=== PATIENT | female | born 1970 | race Caucasian/White ===

== ENCOUNTER 2017-10-02 12:53 | Outpatient (CLI) | payer OTHER ==
[~2017-10-02 12:53] MED LIST: ALBU6.7H INH; BENZ-49 PO; FAMO-128 PO
== END 2017-10-02 23:59 | disposition home or self-care (01) ==
LOC: RAD 12:53
PROVIDERS: ATTEND Nurse Practitioner Family
DX: M54.2 Cervicalgia (principal); Z98.1 Arthrodesis status
CPT/HCPCS: 72141

== ENCOUNTER 2017-10-18 21:43 | Emergency (ER) | payer OTHER ==
[~2017-10-18] VITALS: Ht 170.2 cm; Wt 93.6 kg
[2017-10-18 22:03] VITALS: BP 168/106
[2017-10-18] MEDS ORDERED: SUMAtriptan succ. 6 MG/0.5ml vial SQ ONE (22:15)
[2017-10-18] MEDS ORDERED: ketorolac trometh. 30mg/ml inj. IV ONE (22:15)
[2017-10-18] MEDS ORDERED: morphine 4 MG/ML inj SYRINge IV ONE (22:15)
[2017-10-18] MEDS ORDERED: proCHLORperazine 10 MG/2 ml inj IV ONE (22:15)
[2017-10-18] MEDS ORDERED: normal saline 1000ML IV soln IVB ONE (22:15)
[2017-10-18] MEDS ORDERED: dexamethasone sod phosphate 10mg/ml inj IV STA (22:49)
[2017-10-18] MEDS ORDERED: SUMA100T PO (23:21)
== END 2017-10-18 23:33 | disposition home or self-care (01) ==
LOC: ER 21:44 → EEVIPCON 21:44 → ER 23:33
DX: G43.909 Migraine, unspecified, not intractable, without status migrainosus (principal); M54.2 Cervicalgia; I10 Essential (primary) hypertension; G89.29 Other chronic pain; J45.909 Unspecified asthma, uncomplicated; Z90.710 Acquired absence of both cervix and uterus; Z98.890 Other specified postprocedural states; Z87.442 Personal history of urinary calculi
CPT/HCPCS: 96361; 96372; 96374; 96375; 99284; J0780; J1100; J1885; J2270; J3030; J7030

== ENCOUNTER 2017-11-30 16:49 | Emergency (ER) | payer OTHER ==
[~2017-11-30] VITALS: Ht 170.2 cm; Wt 97.0 kg
[2017-11-30] MEDS ORDERED: AMIT-189 (17:19)
[2017-11-30] MEDS ORDERED: CLON2TAB11 (17:19)
[2017-11-30] MEDS ORDERED: ketorolac tromethamine 15mg/ml inj. IM ONE (18:20)
[2017-11-30] MEDS ORDERED: CYCL-1 PO (18:30)
[2017-11-30 18:38] VITALS: BP 121/68
== END 2017-11-30 18:40 | disposition home or self-care (01) ==
LOC: ER 16:50
DX: S39.012A Strain of muscle, fascia and tendon of lower back, initial encounter (principal); I10 Essential (primary) hypertension; J45.909 Unspecified asthma, uncomplicated; G89.29 Other chronic pain; Z87.442 Personal history of urinary calculi; Z90.710 Acquired absence of both cervix and uterus; Z98.890 Other specified postprocedural states; Z79.899 Other long term (current) drug therapy; X58.XXXA Exposure to other specified factors, initial encounter; Y93.89 Activity, other specified; Y92.89 Other specified places as the place of occurrence of the external cause; Y99.8 Other external cause status
CPT/HCPCS: 96372; 99283; J1885

== ENCOUNTER 2018-01-22 12:59 | Outpatient (CLI) | payer OTHER ==
[~2018-01-22 12:59] MED LIST changes: +AMIT-189; +CLON2TAB11; +CYCL-1 PO
[2018-01-22 13:26] LABS: BASOPHILS % (AUTO) 0.5 % (0-1); EOSINOPHILS # (AUTO) 0.2 X10'3 (0-0.9); EOSINOPHILS % (AUTO) 2.5 % (0-6); HEMATOCRIT 43.8 % (35.0-45.0); HEMOGLOBIN 15.3 g/dl (12.0-16.0); LYMPHOCYTES # (AUTO) 2.4 X10'3 (1.1-4.8); LYMPHOCYTES % (AUTO) 34.4 % (21-51); MEAN CORPUSCULAR HEMOGLOBIN 31.5 PG (27.0-31.0); MEAN CORPUSCULAR HGB CONC 34.9 % (33.0-36.5); MEAN CORPUSCULAR VOLUME 90.4 FL (78-98); MEAN PLATELET VOLUME 7.2 FL (7.4-10.4); MONOCYTES # (AUTO) 0.5 X10'3 (0-0.9); MONOCYTES % (AUTO) 7.7 % (2-12); NEUTROPHILS # (AUTO) 3.8 X10'3 (1.8-7.7); NEUTROPHILS % (AUTO) 54.9 % (42-75); PLATELET COUNT 294 X10'3 (140-440); RED BLOOD COUNT 4.84 X10'6 (4.20-5.60); RED CELL DISTRIBUTION WIDTH 13.8 % (11.5-14.5)
[2018-01-22 13:30] LABS: CLARITY,URINE SLIGHTLY CLOUDY (Clear); COLOR,URINE YELLOW (Yellow); GLUCOSE, URINE NEGATIVE (Neg); KETONES,URINE NEGATIVE (Neg); LEUKOCYTE ESTERASE ,URINE NEGATIVE (Neg); NITRITES, URINE NEGATIVE (Neg); OCCULT BLOOD,URINE NEGATIVE (Neg); PROTEIN,URINE 100 mg/dl (Neg); UROBILINOGEN,URINE 0.2 E.U/dL (0.2-1.0)
[2018-01-22 13:43] LABS: UA COLLECTION TYPE CLN CATCH MIDSTREAM
[2018-01-22 13:44] LABS: WBC,URINE 0-4 /HPF (0-4)
[2018-01-22 13:45] LABS: BACTERIA,URINE 2+ /HPF (Neg); MUCUS STRANDS MANY /LPF (Neg); RBC,URINE NONE SEEN /HPF (0-2); SQUAMOUS EPITHELIAL CELL,UR MANY /LPF (FEW)
[2018-01-22 13:48] LABS: ALANINE AMINOTRANSFERASE 112 U/L (12-78); ALBUMIN 4.1 G/DL (3.4-5.0); ALBUMIN/GLOBULIN RATIO 1.1 (1.1-1.5); ALKALINE PHOSPHATASE 101 IU/L (46-116); ANION GAP 7 (8-16); ASPARTATE AMINO TRANSFERASE 41 U/L (10-37); BILIRUBIN,TOTAL 0.3 MG/DL (0.1-1.0); BLOOD UREA NITROGEN 11 MG/DL (7-18); BUN/CREATININE RATIO 11.1 (6.6-38.0); CALCIUM 9.1 MG/DL (8.5-10.1); CHLORIDE 106 MMOL/L (99-107); CHOLESTEROL 223 MG/DL (0-200); CREATININE 0.99 MG/DL (0.40-0.90); GLUCOSE 128 MG/DL (70-104); HDL CHOLESTEROL 45 MG/DL (35-60); LDL CHOLESTEROL 154 MG/DL (50-100); SODIUM 139 MMOL/L (135-145); TOTAL CARBON DIOXIDE 26.3 MMOL/L (24-32); TOTAL PROTEIN 7.9 G/DL (6.4-8.2); TRIGLYCERIDES 152 MG/DL (20-135); eGFR 60 ML/MIN
== END 2018-01-22 23:59 | disposition home or self-care (01) ==
LOC: LAB 12:59
PROVIDERS: ATTEND Family Medicine
DX: Z00.01 Encounter for general adult medical examination with abnormal findings (principal); F17.200 Nicotine dependence, unspecified, uncomplicated; J45.909 Unspecified asthma, uncomplicated
CPT/HCPCS: 36415; 80053; 80061; 81001; 83001; 84439; 84443; 85025

== ENCOUNTER 2018-01-31 17:37 | Emergency (ER) | payer OTHER ==
[~2018-01-31] VITALS: Ht 170.2 cm; Wt 95.0 kg
[2018-01-31 18:10] LABS: URINE HCG NEGATIVE (NEG)
[2018-01-31 18:22] LABS: CLARITY,URINE SLIGHTLY CLOUDY (Clear); COLOR,URINE YELLOW (Yellow); GLUCOSE, URINE NEGATIVE (Neg); KETONES,URINE NEGATIVE (Neg); LEUKOCYTE ESTERASE ,URINE NEGATIVE (Neg); NITRITES, URINE NEGATIVE (Neg); OCCULT BLOOD,URINE NEGATIVE (Neg); PROTEIN,URINE NEGATIVE (Neg); UROBILINOGEN,URINE 0.2 E.U/dL (0.2-1.0)
[2018-01-31 18:24] LABS: UA COLLECTION TYPE CLN CATCH MIDSTREAM
[2018-01-31 18:32] LABS: BACTERIA,URINE 2+ /HPF (Neg); MUCUS STRANDS MANY /LPF (Neg); RBC,URINE NONE SEEN /HPF (0-2); SQUAMOUS EPITHELIAL CELL,UR MANY /LPF (FEW); WBC,URINE 0-4 /HPF (0-4)
[2018-01-31] MEDS ORDERED: ondansetron 4mg rapidly disintigrating tab PO ONE (18:50)
[2018-01-31] MEDS ORDERED: ketorolac tromethamine 15mg/ml inj. IM ONE (18:50)
[2018-01-31 19:22] LABS: BASOPHILS % (AUTO) 0.5 % (0-1); EOSINOPHILS # (AUTO) 0.2 X10'3 (0-0.9); EOSINOPHILS % (AUTO) 1.9 % (0-6); HEMATOCRIT 41.1 % (35.0-45.0); HEMOGLOBIN 14.1 g/dl (12.0-16.0); LYMPHOCYTES % (AUTO) 37.6 % (21-51); MEAN CORPUSCULAR HEMOGLOBIN 31.1 PG (27.0-31.0); MEAN CORPUSCULAR HGB CONC 34.2 % (33.0-36.5); MEAN CORPUSCULAR VOLUME 90.7 FL (78-98); MEAN PLATELET VOLUME 7.3 FL (7.4-10.4); MONOCYTES # (AUTO) 0.5 X10'3 (0-0.9); NEUTROPHILS # (AUTO) 4.3 X10'3 (1.8-7.7); PLATELET COUNT 330 X10'3 (140-440); RED BLOOD COUNT 4.54 X10'6 (4.20-5.60); WHITE BLOOD COUNT 7.9 X10'3 (4.5-11.0)
[2018-01-31 19:38] LABS: ALANINE AMINOTRANSFERASE 92 U/L (12-78); ALBUMIN 4.1 G/DL (3.4-5.0); ALBUMIN/GLOBULIN RATIO 1.1 (1.1-1.5); ALKALINE PHOSPHATASE 93 IU/L (46-116); ANION GAP 7 (8-16); ASPARTATE AMINO TRANSFERASE 37 U/L (10-37); BILIRUBIN,TOTAL 0.2 MG/DL (0.1-1.0); BLOOD UREA NITROGEN 12 MG/DL (7-18); BUN/CREATININE RATIO 12.9 (6.6-38.0); CALCIUM 9.6 MG/DL (8.5-10.1); CHLORIDE 107 MMOL/L (99-107); CREATININE 0.93 MG/DL (0.40-0.90); GLUCOSE 101 MG/DL (70-104); POTASSIUM 3.7 MMOL/L (3.5-5.1); SODIUM 144 MMOL/L (135-145); TOTAL CARBON DIOXIDE 30.3 MMOL/L (24-32); TOTAL PROTEIN 7.7 G/DL (6.4-8.2); eGFR 65 ML/MIN
[2018-01-31] MEDS ORDERED: DICY10CA88 PO (20:19)
[2018-01-31] MEDS ORDERED: HYDR-3965 PO (20:19)
[2018-01-31] MEDS ORDERED: ONDA4TAB12 PO (20:19)
[2018-01-31] MEDS ORDERED: IBUP-1986 PO (20:19)
[2018-01-31] MEDS ORDERED: morphine 4 MG/ML inj SYRINge IM ONE (20:40)
[2018-01-31 20:55] VITALS: BP 145/89
== END 2018-01-31 20:57 | disposition home or self-care (01) ==
LOC: ER 17:38
DX: R10.31 Right lower quadrant pain (principal); I10 Essential (primary) hypertension; J45.909 Unspecified asthma, uncomplicated; G89.29 Other chronic pain; Z90.49 Acquired absence of other specified parts of digestive tract; Z90.710 Acquired absence of both cervix and uterus; Z98.890 Other specified postprocedural states; Z79.1 Long term (current) use of non-steroidal anti-inflammatories (NSAID); Z79.899 Other long term (current) drug therapy
CPT/HCPCS: 36415; 80053; 81001; 81025; 85025; 96372; 99284; J1885; J2270

== ENCOUNTER 2018-02-17 09:40 | Outpatient (CLI) | payer OTHER ==
[~2018-02-17 09:40] MED LIST changes: +CIPR250T4 PO; +DICY10CA88 PO; +FLO0.4C PO; +HYDR-3965 PO; +IBUP-1986 PO; +ONDA4TAB12 PO
[2018-02-17] MEDS ORDERED: gadopentetate dimeglumine 7.5 MMOL/15 ML syringe ONE (18:04)
== END 2018-02-17 23:59 | disposition home or self-care (01) ==
LOC: RAD 09:40
PROVIDERS: ATTEND Family Medicine
DX: M51.26 Other intervertebral disc displacement, lumbar region (principal); M16.0 Bilateral primary osteoarthritis of hip; M47.816 Spondylosis without myelopathy or radiculopathy, lumbar region; F17.200 Nicotine dependence, unspecified, uncomplicated; J45.909 Unspecified asthma, uncomplicated; Z79.899 Other long term (current) drug therapy; Z90.710 Acquired absence of both cervix and uterus
CPT/HCPCS: 72158; 73521; A9579

== ENCOUNTER 2018-03-25 12:56 | Outpatient (CLI) | payer OTHER ==
[~2018-03-25 12:56] MED LIST changes: -CIPR250T4 PO; -DICY10CA88 PO; -FLO0.4C PO; -HYDR-3965 PO
== END 2018-03-25 23:59 | disposition home or self-care (01) ==
LOC: RAD 12:56
PROVIDERS: ATTEND Orthopaedic Surgery Orthopaedic Surgery of the Spine
DX: M51.36 Other intervertebral disc degeneration, lumbar region (principal); M43.27 Fusion of spine, lumbosacral region; J45.909 Unspecified asthma, uncomplicated; F17.200 Nicotine dependence, unspecified, uncomplicated; Z90.710 Acquired absence of both cervix and uterus
CPT/HCPCS: 72100

== ENCOUNTER 2018-03-25 13:05 | Outpatient (CLI) | payer OTHER | END 2018-03-25 23:59 | disposition home or self-care (01) | LOC: RAD 13:05 | PROVIDERS: ATTEND Family Medicine | DX: Z00.01 Encounter for general adult medical examination with abnormal findings (principal); K76.0 Fatty (change of) liver, not elsewhere classified; J45.909 Unspecified asthma, uncomplicated; F17.200 Nicotine dependence, unspecified, uncomplicated; Z90.710 Acquired absence of both cervix and uterus | CPT/HCPCS: 76700 ==

== ENCOUNTER 2018-05-27 11:48 | Observation (INO) | payer OTHER ==
[2018-05-27] VITALS (15 sets, daily range): BP systolic 112–158; BP diastolic 62–100
[~2018-05-27] VITALS: Ht 170.2 cm; Wt 97.8 kg
[~2018-05-27 11:48] MED LIST changes: -AMIT-189; -BENZ-49 PO; -CLON2TAB11; +CLON2TAB11 PO; -CYCL-1 PO; +EST1T PO; -FAMO-128 PO; +META800T87 PO; -ONDA4TAB12 PO; +TRAM50TA2 PO; +VANCOMYCIN INJ 1000 MG in NORMAL SALINE 250ml IV.SOLN IV ONE; +ZOLP10TA5 PO; +cefazolin/dext.iso 2gm/100 ML IV ONE; +famotidine 20mg tablet PO ONE; +ringers solution, lacted 1,000 ML IV SCH
[2018-05-27] MEDS ORDERED: LIDOcaine 1% (10mg/ml) 2ml vial ONE (12:50)
[2018-05-27 13:31] LABS: BASOPHILS % (AUTO) 0.8 % (0-1); EOSINOPHILS # (AUTO) 0.1 X10'3 (0-0.9); EOSINOPHILS % (AUTO) 2.4 % (0-6); LYMPHOCYTES # (AUTO) 2.2 X10'3 (1.1-4.8); LYMPHOCYTES % (AUTO) 34.7 % (21-51); MEAN CORPUSCULAR HEMOGLOBIN 30.7 PG (27.0-31.0); MEAN CORPUSCULAR HGB CONC 33.8 % (33.0-36.5); MEAN CORPUSCULAR VOLUME 90.8 FL (78-98); MEAN PLATELET VOLUME 7.3 FL (7.4-10.4); MONOCYTES # (AUTO) 0.5 X10'3 (0-0.9); MONOCYTES % (AUTO) 8.1 % (2-12); NEUTROPHILS # (AUTO) 3.4 X10'3 (1.8-7.7); PRE OP HEMATOCRIT 38.6 % (35.0-45.0); PRE OP HEMOGLOBIN 13.1 g/dL (12.0-16.0); PRE OP PLATELET COUNT 306 X10'3 (140-440); RED BLOOD COUNT 4.26 X10'6 (4.20-5.60)
[2018-05-27 13:49] LABS: PRE OP INR 0.9 INR; PRE OP PROTIME 9.6 SECONDS (9.0-12.0)
[2018-05-27 13:50] LABS: ALBUMIN 3.7 G/DL (3.4-5.0); ALBUMIN/GLOBULIN RATIO 1.1 (1.1-1.5); ALKALINE PHOSPHATASE 79 IU/L (46-116); BLOOD UREA NITROGEN 11 MG/DL (7-18); BUN/CREATININE RATIO 13.6 (6.6-38.0); CALCIUM 8.7 MG/DL (8.5-10.1); CHLORIDE 103 MMOL/L (99-107); CREATININE 0.81 MG/DL (0.40-0.90); PRE OP ALT 46 U/L (30-65); PRE OP ANION GAP 9 (8-16); PRE OP AST 30 U/L (10-37); PRE OP BILIRUB, TOTAL 0.3 MG/DL (0.0-1.0); PRE OP GLUCOSE 109 MG/DL (70-104); PRE OP POTASSIUM 3.7 MMOL/L (3.4-5.1); PRE OP SODIUM 139 MMOL/L (135-145); TOTAL CARBON DIOXIDE 26.6 MMOL/L (24-32); TOTAL PROTEIN 7.2 G/DL (6.4-8.2); eGFR 76 ML/MIN
[2018-05-27] MEDS ORDERED: gelatin sponge, absorbable (Gelfoam 100) sponge TP ONE (13:50)
[2018-05-27] MEDS ORDERED: Thrombin (Bovine) 5,000 unit vial TP ONE (13:50)
[2018-05-27] MEDS ORDERED: methylPREDNISolone sod succ 125mg/2ml vial ONE (13:50)
[2018-05-27] MEDS ORDERED: rocuronium 10mg/ml inj IV ONE ×2 (14:07→17:25)
[2018-05-27] MEDS ORDERED: LIDOcaine 2% (20mg/ml) 5ml vial ONE (14:07)
[2018-05-27] MEDS ORDERED: propofol inj 20 ML IV ONE (14:07)
[2018-05-27] MEDS ORDERED: ondansetron/PF 4mg/2ml inj ONE (14:07)
[2018-05-27] MEDS: midazolam 2 mg/2 ml injection IV PRN ×2 (14:13→15:09)
[2018-05-27] MEDS ORDERED: labetalol 20mg/4ml (5mg/ml) syringe IV PRN (14:50)
[2018-05-27] MEDS ORDERED: morphine 4 MG/ML inj SYRINge IV PRN (14:50)
[2018-05-27] MEDS ORDERED: ringers solution, lacted 1,000 ML IV SCH (14:50)
[2018-05-27] MEDS ORDERED: ondansetron/PF 4mg/2ml inj IV PRN ×2 (14:50→19:20)
[2018-05-27] MEDS ORDERED: fentaNYL/PF 50MCG/1 ML 2ML syringe IV PRN ×2 (14:50)
[2018-05-27] MEDS ORDERED: hydrALAZINE 20mg/ml inj. IV PRN (14:50)
[2018-05-27 14:57] LABS: CLARITY,URINE CLEAR (Clear); COLOR,URINE STRAW (Yellow); GLUCOSE, URINE NEGATIVE (Neg); KETONES,URINE NEGATIVE (Neg); LEUKOCYTE ESTERASE ,URINE NEGATIVE (Neg); NITRITES, URINE NEGATIVE (Neg); OCCULT BLOOD,URINE LARGE (Neg); PH,URINE 5.5 (4.8-8.0); PROTEIN,URINE NEGATIVE (Neg); UROBILINOGEN,URINE 0.2 E.U/dL (0.2-1.0)
[2018-05-27 15:00] LABS: UA COLLECTION TYPE CLN CATCH MIDSTREAM
[2018-05-27 15:04] LABS: SQUAMOUS EPITHELIAL CELL,UR FEW /LPF (FEW); WBC,URINE 0-4 /HPF (0-4)
[2018-05-27 15:05] LABS: BACTERIA,URINE FEW /HPF (Neg)
[2018-05-27] MEDS ORDERED: sevoflurane 250ml liquid IH ONE (15:08)
[2018-05-27] MEDS ORDERED: labetalol 20mg/4ml (5mg/ml) syringe IV ONE (15:08)
[2018-05-27] MEDS ORDERED: dexamethasone sod phosphate 10mg/ml inj ONE (15:08)
[2018-05-27] MEDS ORDERED: fentaNYL /PF 50mcg/ml 5ml ampule ONE ×2 (15:09→18:17)
[2018-05-27] MEDS ORDERED: MIDAZolam 5mg/5ml vial ONE (15:09)
[2018-05-27] MEDS ORDERED: glycopyrrolate 0.2mg/ml inj ONE (16:11)
[2018-05-27] MEDS ORDERED: neostigmine methylsulfate 1 MG/ML 10ml vial ONE (16:11)
[2018-05-27] MEDS ORDERED: fentaNYL/PF 50MCG/1 ML 2ML syringe ONE (17:09)
[2018-05-27] MEDS ORDERED: BUPIVAcaine/PF 2.5mg/ml (0.25%) 10ml vial ONE (18:45)
[2018-05-27] MEDS ORDERED: clonazePAM 1mg tablet PO PRN (19:15)
[2018-05-27] MEDS ORDERED: acetaminophen 325mg tablet PO PRN (19:20)
[2018-05-27] MEDS ORDERED: HYDROcodone/acetaminophen 10/325mg tab PO PRN (19:20)
[2018-05-27] MEDS ORDERED: metoclopramide 5 mg/ml inj IV PRN (19:20)
[2018-05-27] MEDS ORDERED: temazepam 15mg capsule PO PRN (19:20)
[2018-05-27] MEDS ORDERED: simethicone 125mg capsule PO PRN (19:20)
[2018-05-27] MEDS ORDERED: diphenhydrAMINE 50 mg/ml inj IV PRN (19:20)
[2018-05-27] MEDS ORDERED: naloxone 0.4 mg/ml inj IV PRN (19:20)
[2018-05-27] MEDS ORDERED: bisacodyl 10mg suppository rectal RC PRN (19:20)
[2018-05-27] MEDS ORDERED: albuterol 2.5 MG/3 ML nebule NEB PRN (19:20)
[2018-05-27] MEDS ORDERED: mag hydrox/Alum hydrox/simeth 30ml oral suspension PO PRN (19:20)
[2018-05-27] MEDS ORDERED: magnesium hydroxide 30ml (MOM) UD suspension PO PRN (19:20)
[2018-05-27] MEDS ORDERED: CADD PCA waste documentation MC PRN (19:20)
[2018-05-27] MEDS: morphine 4 MG/ML inj SYRINge IV PRN ×2 (19:34→19:56)
[2018-05-27] MEDS: HYDROmorphone/NS 1 mg/ml CADD 50 ML IV SCH ×3 (20:06→23:00)
[2018-05-27] MEDS: normal saline 1000ml 1,000 ML IV SCH (20:06)
[2018-05-27] MEDS: docusate sod 100mg capsule PO SCH (20:48)
[2018-05-27] MEDS: vancomycin/NS 1 GM ADD-VANTAGE 250 ML IV SCH (20:48)
[2018-05-27] MEDS ORDERED: HYDROmorphone/NS 1 mg/ml CADD 50 ML IV SCH (21:00)
[2018-05-27] MEDS: zolpidem 5mg tablet PO PRN (21:46)
[2018-05-27] MEDS: ibuprofen tablet 400 MG TABLET PO SCH (23:25)
[2018-05-27] MEDS: ceFAZolin 1GM/D5W- ADD-VANTAGE 50 ML IV SCH (23:27)
[2018-05-28 00:15] VITALS: BP 127/77
[2018-05-28] MEDS: HYDROmorphone/NS 1 mg/ml CADD 50 ML IV SCH ×6 (00:46→11:00)
[2018-05-28 07:25] VITALS: BP 98/68
[2018-05-28] MEDS: ibuprofen tablet 400 MG TABLET PO SCH ×3 (08:21→23:54)
[2018-05-28] MEDS: ceFAZolin 1GM/D5W- ADD-VANTAGE 50 ML IV SCH (08:21)
[2018-05-28] MEDS: estradiol 1mg tablet PO SCH (08:22)
[2018-05-28] MEDS: docusate sod 100mg capsule PO SCH ×2 (08:22→19:24)
[2018-05-28] MEDS: normal saline 1000ml 1,000 ML IV SCH ×2 (09:36→19:34)
[2018-05-28] MEDS: gabapentin 300mg capsule PO SCH ×3 (09:36→23:54)
[2018-05-28] MEDS: vancomycin/NS 1 GM ADD-VANTAGE 250 ML IV SCH (09:36)
[2018-05-28] MEDS ORDERED: cyclobenzaprine 10mg tablet PO PRN (11:40)
[2018-05-28] MEDS: cyclobenzaprine 10mg tablet PO PRN ×2 (11:48→23:56)
[2018-05-28] MEDS: HYDROcodone/acetaminophen 10/325mg tab PO PRN ×3 (12:37→21:50)
[2018-05-28 12:40] VITALS: BP 129/65
[2018-05-28 18:00] VITALS: BP 154/68
[2018-05-28] MEDS: HYDROmorphone 1 mg/ml syringe IV PRN (19:24)
[2018-05-28] MEDS: zolpidem 5mg tablet PO PRN (21:49)
[2018-05-28 22:00] VITALS: BP 135/77
[2018-05-29] MEDS: normal saline 1000ml 1,000 ML IV SCH (01:06)
[2018-05-29] MEDS: HYDROmorphone 1 mg/ml syringe IV PRN ×3 (01:07→12:24)
[2018-05-29] MEDS: HYDROcodone/acetaminophen 10/325mg tab PO PRN ×3 (02:35→10:36)
[2018-05-29 06:00] VITALS: BP 132/72
[2018-05-29] MEDS: estradiol 1mg tablet PO SCH (08:44)
[2018-05-29] MEDS: gabapentin 300mg capsule PO SCH (08:44)
[2018-05-29] MEDS: ibuprofen tablet 400 MG TABLET PO SCH (08:44)
[2018-05-29] MEDS: docusate sod 100mg capsule PO SCH (08:44)
[2018-05-29] MEDS ORDERED: CYCL-1 PO (09:30)
[2018-05-29] MEDS ORDERED: GABA300C PO (09:30)
[2018-05-29] MEDS ORDERED: WALKERFR (09:34)
[2018-05-29 10:00] VITALS: BP 160/82
[2018-05-29] MEDS: cyclobenzaprine 10mg tablet PO PRN (10:05)
== END 2018-05-29 12:30 | disposition home or self-care (01) ==
LOC: PAS 11:48 → PACU 19:57 → ORTHO 4S 20:20
PROVIDERS: ADMIT Orthopaedic Surgery Orthopaedic Surgery of the Spine; ATTEND Orthopaedic Surgery Orthopaedic Surgery of the Spine
DX: M51.16 Intervertebral disc disorders with radiculopathy, lumbar region (principal); M47.28 Other spondylosis with radiculopathy, sacral and sacrococcygeal region; F17.210 Nicotine dependence, cigarettes, uncomplicated; Z90.49 Acquired absence of other specified parts of digestive tract; Z90.710 Acquired absence of both cervix and uterus
CPT/HCPCS: 36415; 71045; 72100; 76001; 80053; 81001; 85025; 85610; 85730; 86885; 86900; 86901; 94760; 96365; 96366; 96367; 96375; 96376; 97110; 97116; 97162; 97530; A4344; A6196; A6402; A7000; C1758; G0378; J0690; J1100; J1170; J2001; J2250; J2270; J2405; J2704; J2710; J2765; J2930; J3010; J3370; J3490; J7030; J7120

== ENCOUNTER 2018-07-16 11:20 | Outpatient (CLI) | payer OTHER ==
[~2018-07-16 11:20] MED LIST changes: +CYCL-1 PO; +GABA300C PO; -IBUP-1986 PO; -META800T87 PO; -VANCOMYCIN INJ 1000 MG in NORMAL SALINE 250ml IV.SOLN IV ONE; +WALKERFR; -cefazolin/dext.iso 2gm/100 ML IV ONE; -famotidine 20mg tablet PO ONE; -ringers solution, lacted 1,000 ML IV SCH
== END 2018-07-16 23:59 | disposition home or self-care (01) ==
LOC: RAD 11:20
PROVIDERS: ATTEND Orthopaedic Surgery Orthopaedic Surgery of the Spine
DX: M51.36 Other intervertebral disc degeneration, lumbar region (principal); M43.27 Fusion of spine, lumbosacral region; M51.26 Other intervertebral disc displacement, lumbar region; M53.3 Sacrococcygeal disorders, not elsewhere classified
CPT/HCPCS: 72100

== ENCOUNTER 2018-10-19 22:39 | Emergency (ER) | payer OTHER ==
[~2018-10-19] VITALS: Ht 170.2 cm; Wt 87.5 kg
[2018-10-19] MEDS ORDERED: ketorolac trometh. 30mg/ml inj. IV ONE (23:05)
[2018-10-19 23:18] LABS: BASOPHILS # (AUTO) 0.1 X10'3 (0-0.2); BASOPHILS % (AUTO) 0.6 % (0-1); EOSINOPHILS # (AUTO) 0.2 X10'3 (0-0.9); EOSINOPHILS % (AUTO) 2.3 % (0-6); HEMATOCRIT 38.6 % (35.0-45.0); HEMOGLOBIN 12.9 g/dl (12.0-16.0); LYMPHOCYTES # (AUTO) 3.4 X10'3 (1.1-4.8); LYMPHOCYTES % (AUTO) 39.3 % (21-51); MEAN CORPUSCULAR HEMOGLOBIN 29.8 PG (27.0-31.0); MEAN CORPUSCULAR HGB CONC 33.5 g/dL (33.0-36.5); MEAN CORPUSCULAR VOLUME 88.7 FL (78-98); MEAN PLATELET VOLUME 7.5 FL (7.4-10.4); MONOCYTES # (AUTO) 0.7 X10'3 (0-0.9); MONOCYTES % (AUTO) 8.3 % (2-12); NEUTROPHILS # (AUTO) 4.2 X10'3 (1.8-7.7); NEUTROPHILS % (AUTO) 49.5 % (42-75); PLATELET COUNT 316 X10'3 (140-440); RED BLOOD COUNT 4.35 X10'6 (4.20-5.60); RED CELL DISTRIBUTION WIDTH 15.3 % (11.5-14.5); WHITE BLOOD COUNT 8.6 X10'3 (4.5-11.0)
[2018-10-19 23:34] LABS: ALANINE AMINOTRANSFERASE 47 U/L (12-78); ALBUMIN 3.7 G/DL (3.4-5.0); ALBUMIN/GLOBULIN RATIO 0.9 (1.1-1.5); ALKALINE PHOSPHATASE 97 IU/L (46-116); ANION GAP 12 (8-16); ASPARTATE AMINO TRANSFERASE 19 U/L (10-37); BILIRUBIN,TOTAL 0.2 MG/DL (0.1-1.0); BLOOD UREA NITROGEN 8 MG/DL (7-18); CALCIUM 9.4 MG/DL (8.5-10.1); CHLORIDE 107 MMOL/L (99-107); GLUCOSE 111 MG/DL (70-104); POTASSIUM 3.6 MMOL/L (3.5-5.1); SODIUM 143 MMOL/L (135-145); TOTAL CARBON DIOXIDE 24.4 MMOL/L (24-32); TOTAL PROTEIN 7.6 G/DL (6.4-8.2); eGFR 77 ML/MIN
[2018-10-19 23:35] LABS: INR 0.9 INR; PARTIAL THROMBOPLASTIN TIME 28 SECONDS (22-32)
[2018-10-19] MEDS ORDERED: metoprolol tartrate 1mg/ml inj IV ONE (23:40)
[2018-10-19] MEDS ORDERED: ondansetron/PF 4mg/2ml inj IV ONE (23:50)
[2018-10-19] MEDS ORDERED: morphine 4 MG/ML inj SYRINge IV ONE (23:50)
[2018-10-20 00:17] VITALS: BP 149/95
[2018-10-20] MEDS ORDERED: diphenhydrAMINE 50 mg/ml inj IV ONE (00:20)
[2018-10-20] MEDS ORDERED: metoclopramide 5 mg/ml inj IV ONE (00:20)
== END 2018-10-20 00:48 | disposition home or self-care (01) ==
LOC: EEVIPCON 22:39 → ER 22:39
DX: R00.2 Palpitations (principal); R51 Headache; H53.149 Visual discomfort, unspecified; I10 Essential (primary) hypertension; R79.1 Abnormal coagulation profile; J45.909 Unspecified asthma, uncomplicated; G89.29 Other chronic pain; F17.200 Nicotine dependence, unspecified, uncomplicated; Z79.899 Other long term (current) drug therapy; Z87.442 Personal history of urinary calculi; Z87.440 Personal history of urinary (tract) infections; Z90.49 Acquired absence of other specified parts of digestive tract; Z90.710 Acquired absence of both cervix and uterus; Z98.890 Other specified postprocedural states
CPT/HCPCS: 36415; 71045; 80053; 84484; 85025; 85610; 85730; 93005; 96374; 96375; 99284; J1200; J1885; J2270; J2405; J2765; J3490

== ENCOUNTER 2019-01-08 12:53 | Outpatient (CLI) | payer OTHER ==
[2019-01-08 14:01] LABS: BASOPHILS # (AUTO) 0.1 X10'3 (0-0.2); BASOPHILS % (AUTO) 0.7 % (0-1); EOSINOPHILS # (AUTO) 0.2 X10'3 (0-0.9); EOSINOPHILS % (AUTO) 2.2 % (0-6); HEMATOCRIT 40.6 % (35.0-45.0); HEMOGLOBIN 13.9 g/dl (12.0-16.0); LYMPHOCYTES # (AUTO) 2.9 X10'3 (1.1-4.8); LYMPHOCYTES % (AUTO) 39.2 % (21-51); MEAN CORPUSCULAR HEMOGLOBIN 31.9 PG (27.0-31.0); MEAN CORPUSCULAR HGB CONC 34.1 g/dL (33.0-36.5); MEAN CORPUSCULAR VOLUME 93.5 FL (78-98); MEAN PLATELET VOLUME 7.6 FL (7.4-10.4); MONOCYTES # (AUTO) 0.6 X10'3 (0-0.9); NEUTROPHILS # (AUTO) 3.6 X10'3 (1.8-7.7); NEUTROPHILS % (AUTO) 49.9 % (42-75); PLATELET COUNT 305 X10'3 (140-440); RED BLOOD COUNT 4.34 X10'6 (4.20-5.60); RED CELL DISTRIBUTION WIDTH 14.1 % (11.5-14.5); WHITE BLOOD COUNT 7.3 X10'3 (4.5-11.0)
[2019-01-08 14:22] LABS: ALANINE AMINOTRANSFERASE 59 U/L (12-78); ALBUMIN 3.7 G/DL (3.4-5.0); ALBUMIN/GLOBULIN RATIO 0.9 (1.1-1.5); ALKALINE PHOSPHATASE 89 IU/L (46-116); ANION GAP 8 (8-16); ASPARTATE AMINO TRANSFERASE 21 U/L (10-37); BILIRUBIN,TOTAL 0.2 MG/DL (0.1-1.0); BLOOD UREA NITROGEN 10 MG/DL (7-18); BUN/CREATININE RATIO 14.9 (6.6-38.0); CALCIUM 8.3 MG/DL (8.5-10.1); CHLORIDE 105 MMOL/L (99-107); CREATININE 0.67 MG/DL (0.40-0.90); GLUCOSE 82 MG/DL (70-104); POTASSIUM 3.5 MMOL/L (3.5-5.1); SODIUM 140 MMOL/L (135-145); TOTAL CARBON DIOXIDE 26.7 MMOL/L (24-32); TOTAL PROTEIN 7.7 G/DL (6.4-8.2); eGFR > 90 ML/MIN
== END 2019-01-08 23:59 | disposition home or self-care (01) ==
LOC: LAB 12:53
PROVIDERS: ATTEND Dermatology
DX: Z79.899 Other long term (current) drug therapy (principal); R21 Rash and other nonspecific skin eruption
CPT/HCPCS: 36415; 80053; 85025

== ENCOUNTER 2019-01-17 19:30 | Emergency (ER) | payer OTHER ==
[~2019-01-17] VITALS: Ht 170.2 cm; Wt 88.6 kg
[2019-01-17 20:05] LABS: BASOPHILS # (AUTO) 0.1 X10'3 (0-0.2); BASOPHILS % (AUTO) 0.7 % (0-1); EOSINOPHILS # (AUTO) 0.2 X10'3 (0-0.9); EOSINOPHILS % (AUTO) 1.4 % (0-6); HEMATOCRIT 43.3 % (35.0-45.0); HEMOGLOBIN 14.6 g/dl (12.0-16.0); LYMPHOCYTES # (AUTO) 4.4 X10'3 (1.1-4.8); LYMPHOCYTES % (AUTO) 38.1 % (21-51); MEAN CORPUSCULAR HEMOGLOBIN 31.6 PG (27.0-31.0); MEAN CORPUSCULAR HGB CONC 33.8 g/dL (33.0-36.5); MEAN CORPUSCULAR VOLUME 93.4 FL (78-98); MEAN PLATELET VOLUME 7.7 FL (7.4-10.4); MONOCYTES # (AUTO) 0.9 X10'3 (0-0.9); MONOCYTES % (AUTO) 7.6 % (2-12); NEUTROPHILS % (AUTO) 52.2 % (42-75); PLATELET COUNT 309 X10'3 (140-440); RED BLOOD COUNT 4.63 X10'6 (4.20-5.60); WHITE BLOOD COUNT 11.4 X10'3 (4.5-11.0)
[2019-01-17] MEDS ORDERED: metoclopramide 5 mg/ml inj IV ONE (20:15)
[2019-01-17] MEDS ORDERED: cloNIDine 0.1 mg tablet PO ONE (20:15)
[2019-01-17] MEDS ORDERED: diphenhydrAMINE 50 mg/ml inj IV ONE (20:15)
[2019-01-17] MEDS ORDERED: normal saline 1000ML IV soln IVB ONE (20:15)
[2019-01-17] MEDS ORDERED: metoprolol tartrate 1mg/ml inj IV ONE (20:15)
[2019-01-17] MEDS ORDERED: LORazepam 2 mg/ml vial IV ONE (20:15)
[2019-01-17 20:22] LABS: PARTIAL THROMBOPLASTIN TIME 28 SECONDS (22-32)
[2019-01-17 20:25] LABS: ALANINE AMINOTRANSFERASE 41 U/L (12-78); ALBUMIN/GLOBULIN RATIO 0.9 (1.1-1.5); ALKALINE PHOSPHATASE 92 IU/L (46-116); ANION GAP 9 (8-16); ASPARTATE AMINO TRANSFERASE 19 U/L (10-37); BILIRUBIN,TOTAL 0.2 MG/DL (0.1-1.0); BLOOD UREA NITROGEN 10 MG/DL (7-18); BUN/CREATININE RATIO 11.4 (6.6-38.0); CALCIUM 9.2 MG/DL (8.5-10.1); CHLORIDE 104 MMOL/L (99-107); CREATININE 0.88 MG/DL (0.40-0.90); GLUCOSE 114 MG/DL (70-104); POTASSIUM 3.6 MMOL/L (3.5-5.1); SODIUM 138 MMOL/L (135-145); TOTAL CARBON DIOXIDE 24.7 MMOL/L (24-32); TOTAL PROTEIN 8.3 G/DL (6.4-8.2); eGFR 69 ML/MIN
[2019-01-17] MEDS ORDERED: morphine 4 MG/ML inj SYRINge IV ONE (21:00)
[2019-01-17] MEDS ORDERED: ketorolac trometh. 30mg/ml inj. IV ONE (21:00)
[2019-01-17] MEDS ORDERED: ketorolac tromethamine 15mg/ml inj. IV ONE (21:05)
[2019-01-17] MEDS ORDERED: ATEN25TA PO (21:25)
[2019-01-17 21:55] LABS: CLARITY,URINE CLEAR (Clear); COLOR,URINE YELLOW (Yellow); GLUCOSE, URINE NEGATIVE (Neg); KETONES,URINE NEGATIVE (Neg); LEUKOCYTE ESTERASE ,URINE NEGATIVE (Neg); NITRITES, URINE NEGATIVE (Neg); OCCULT BLOOD,URINE NEGATIVE (Neg); PH,URINE 6.5 (4.8-8.0); PROTEIN,URINE NEGATIVE (Neg); UROBILINOGEN,URINE 0.2 E.U/dL (0.2-1.0)
[2019-01-17 22:03] LABS: UA COLLECTION TYPE CLN CATCH MIDSTREAM
--- NOTE | 2019-01-17 22:04 | NUR ---
MD OHLFS AWARE OF RETURN OF PT HEADACHE AND CHEST PRESSURE.
[2019-01-17 22:05] VITALS: BP 156/91
== END 2019-01-17 22:10 | disposition home or self-care (01) ==
LOC: ER 19:31
DX: I10 Essential (primary) hypertension (principal); G43.909 Migraine, unspecified, not intractable, without status migrainosus; J45.909 Unspecified asthma, uncomplicated; G89.29 Other chronic pain; F17.210 Nicotine dependence, cigarettes, uncomplicated; Z87.442 Personal history of urinary calculi; Z90.49 Acquired absence of other specified parts of digestive tract; Z90.710 Acquired absence of both cervix and uterus; Z98.890 Other specified postprocedural states; Z79.899 Other long term (current) drug therapy
CPT/HCPCS: 36415; 71045; 80053; 81003; 84484; 85025; 85610; 85730; 93005; 96374; 96375; 99284; J1200; J1885; J2060; J2270; J2765; J7030; J3490

== ENCOUNTER 2019-02-05 18:13 | Emergency (ER) | payer OTHER ==
[~2019-02-05] VITALS: Ht 170.2 cm; Wt 88.6 kg
[~2019-02-05 18:13] MED LIST changes: -ALBU6.7H INH; +ALBU6.7H9 INH; +ATEN25TA PO
[2019-02-05 18:49] LABS: BASOPHILS # (AUTO) 0.1 X10'3 (0-0.2); BASOPHILS % (AUTO) 0.7 % (0-1); EOSINOPHILS # (AUTO) 0.1 X10'3 (0-0.9); EOSINOPHILS % (AUTO) 1.5 % (0-6); HEMATOCRIT 42.3 % (35.0-45.0); HEMOGLOBIN 14.6 g/dl (12.0-16.0); LYMPHOCYTES # (AUTO) 2.8 X10'3 (1.1-4.8); LYMPHOCYTES % (AUTO) 29.3 % (21-51); MEAN CORPUSCULAR HEMOGLOBIN 32.1 PG (27.0-31.0); MEAN CORPUSCULAR HGB CONC 34.4 g/dL (33.0-36.5); MEAN CORPUSCULAR VOLUME 93.2 FL (78-98); MEAN PLATELET VOLUME 7.5 FL (7.4-10.4); MONOCYTES # (AUTO) 0.8 X10'3 (0-0.9); NEUTROPHILS # (AUTO) 5.7 X10'3 (1.8-7.7); NEUTROPHILS % (AUTO) 60.5 % (42-75); PLATELET COUNT 337 X10'3 (140-440); RED BLOOD COUNT 4.54 X10'6 (4.20-5.60); RED CELL DISTRIBUTION WIDTH 14.1 % (11.5-14.5); WHITE BLOOD COUNT 9.5 X10'3 (4.5-11.0)
[2019-02-05] MEDS ORDERED: HYDROcodone/acetaminophen 5mg/325mg tablet PO ONE (18:55)
[2019-02-05 19:00] LABS: ALANINE AMINOTRANSFERASE 49 U/L (12-78); ALKALINE PHOSPHATASE 93 IU/L (46-116); ANION GAP 8 (8-16); ASPARTATE AMINO TRANSFERASE 19 U/L (10-37); BILIRUBIN,TOTAL 0.2 MG/DL (0.1-1.0); BLOOD UREA NITROGEN 17 MG/DL (7-18); BUN/CREATININE RATIO 17.7 (6.6-38.0); CALCIUM 9.5 MG/DL (8.5-10.1); CHLORIDE 109 MMOL/L (99-107); CREATININE 0.96 MG/DL (0.40-0.90); GLUCOSE 106 MG/DL (70-104); SODIUM 143 MMOL/L (135-145); TOTAL CARBON DIOXIDE 26.4 MMOL/L (24-32); eGFR 62 ML/MIN
[2019-02-05 19:08] LABS: PARTIAL THROMBOPLASTIN TIME 27 SECONDS (22-32)
--- NOTE | 2019-02-05 20:31 | NUR ---
Pt states she has been feeling a fluttery feeling in her chest, but also wonders if she may have kidney stones.
[2019-02-05] MEDS ORDERED: metoprolol succinate 25mg (24-HOUR) SR. Tablet PO STA (21:07)
[2019-02-05] MEDS ORDERED: HYDROcodone/acetaminophen 10/325mg tab PO ONE (21:10)
[2019-02-05 21:34] LABS: CLARITY,URINE CLEAR (Clear); COLOR,URINE YELLOW (Yellow); GLUCOSE, URINE NEGATIVE (Neg); KETONES,URINE NEGATIVE (Neg); LEUKOCYTE ESTERASE ,URINE NEGATIVE (Neg); NITRITES, URINE NEGATIVE (Neg); OCCULT BLOOD,URINE NEGATIVE (Neg); PH,URINE 5.5 (4.8-8.0); PROTEIN,URINE NEGATIVE (Neg); UROBILINOGEN,URINE 0.2 E.U/dL (0.2-1.0)
[2019-02-05 21:41] LABS: UA COLLECTION TYPE CLN CATCH MIDSTREAM
[2019-02-05] MEDS ORDERED: METO25TA6 PO (22:03)
[2019-02-05 22:07] VITALS: BP 160/90
[2019-02-06] MEDS ORDERED: metoprolol succinate 25mg (24-HOUR) SR. Tablet PO SCH (08:00)
== END 2019-02-05 22:14 | disposition home or self-care (01) ==
LOC: ER 18:14
DX: I49.8 Other specified cardiac arrhythmias (principal); I10 Essential (primary) hypertension; R10.31 Right lower quadrant pain; G43.909 Migraine, unspecified, not intractable, without status migrainosus; J45.909 Unspecified asthma, uncomplicated; G89.29 Other chronic pain; F17.200 Nicotine dependence, unspecified, uncomplicated; Z90.49 Acquired absence of other specified parts of digestive tract; Z90.710 Acquired absence of both cervix and uterus; Z98.890 Other specified postprocedural states; Z79.899 Other long term (current) drug therapy
CPT/HCPCS: 36415; 71045; 80053; 81003; 84484; 85025; 85610; 85730; 93005; 99284

== ENCOUNTER 2019-05-07 19:16 | Emergency (ER) | payer OTHER ==
[~2019-05-07] VITALS: Ht 170.2 cm; Wt 93.0 kg
[~2019-05-07 19:16] MED LIST changes: +METO25TA6 PO
[2019-05-07 19:18] VITALS: BP 144/74
[2019-05-07] MEDS ORDERED: AZIT-63 PO (20:17)
== END 2019-05-07 20:30 | disposition home or self-care (01) ==
LOC: EEVIPCON 19:17 → ER 19:17
DX: J32.9 Chronic sinusitis, unspecified (principal); G43.909 Migraine, unspecified, not intractable, without status migrainosus; I10 Essential (primary) hypertension; J45.909 Unspecified asthma, uncomplicated; G89.29 Other chronic pain; F17.210 Nicotine dependence, cigarettes, uncomplicated; Z87.442 Personal history of urinary calculi; Z90.49 Acquired absence of other specified parts of digestive tract; Z90.710 Acquired absence of both cervix and uterus; Z98.890 Other specified postprocedural states; Z79.899 Other long term (current) drug therapy
CPT/HCPCS: 99283

== ENCOUNTER 2019-05-14 12:15 | Inpatient (IN) | payer OTHER ==
[~2019-05-14] VITALS: Ht 170.2 cm; Wt 83.0 kg
[~2019-05-14 12:15] MED LIST changes: +AZIT-63 PO
[2019-05-14 12:43] LABS: BASOPHILS # (AUTO) 0.1 X10'3 (0-0.2); BASOPHILS % (AUTO) 0.8 % (0-1); EOSINOPHILS # (AUTO) 0.2 X10'3 (0-0.9); EOSINOPHILS % (AUTO) 3.3 % (0-6); HEMATOCRIT 41.9 % (35.0-45.0); HEMOGLOBIN 14.2 g/dl (12.0-16.0); LYMPHOCYTES # (AUTO) 2.6 X10'3 (1.1-4.8); LYMPHOCYTES % (AUTO) 38.1 % (21-51); MEAN CORPUSCULAR HEMOGLOBIN 31.3 PG (27.0-31.0); MEAN CORPUSCULAR HGB CONC 33.8 g/dL (33.0-36.5); MEAN CORPUSCULAR VOLUME 92.8 FL (78-98); MEAN PLATELET VOLUME 7.2 FL (7.4-10.4); MONOCYTES # (AUTO) 0.6 X10'3 (0-0.9); MONOCYTES % (AUTO) 8.7 % (2-12); NEUTROPHILS # (AUTO) 3.3 X10'3 (1.8-7.7); NEUTROPHILS % (AUTO) 49.1 % (42-75); PLATELET COUNT 277 X10'3 (140-440); RED BLOOD COUNT 4.52 X10'6 (4.20-5.60); RED CELL DISTRIBUTION WIDTH 13.9 % (11.5-14.5); WHITE BLOOD COUNT 6.7 X10'3 (4.5-11.0)
[2019-05-14 12:57] LABS: ALANINE AMINOTRANSFERASE 56 U/L (12-78); ALBUMIN/GLOBULIN RATIO 0.9 (1.1-1.5); ALKALINE PHOSPHATASE 80 IU/L (46-116); ANION GAP 6 (8-16); ASPARTATE AMINO TRANSFERASE 25 U/L (10-37); BILIRUBIN,TOTAL 0.3 MG/DL (0.1-1.0); BLOOD UREA NITROGEN 10 MG/DL (7-18); BUN/CREATININE RATIO 14.7 (6.6-38.0); CALCIUM 9.1 MG/DL (8.5-10.1); CHLORIDE 106 MMOL/L (99-107); CREATININE 0.68 MG/DL (0.40-0.90); GLUCOSE 85 MG/DL (70-104); POTASSIUM 4.3 MMOL/L (3.5-5.1); SODIUM 142 MMOL/L (135-145); TOTAL CARBON DIOXIDE 30.4 MMOL/L (24-32); TOTAL PROTEIN 8.3 G/DL (6.4-8.2); eGFR > 90 ML/MIN
--- NOTE | 2019-05-14 13:52 | NUR ---
TELE NEURO HAS BEEN INITIATED
[2019-05-14] MEDS ORDERED: enalaprilat dihydrate 2.5mg/2ml vial IV ONE ×2 (14:35→14:40)
[2019-05-14] MEDS ORDERED: CLON2TAB12 PO (14:39)
[2019-05-14] MEDS ORDERED: ESTR1TAB19 PO (14:39)
[2019-05-14] MEDS ORDERED: ZOLP10TA PO (14:39)
[2019-05-14] MEDS ORDERED: LISI10TA4 PO (14:39)
[2019-05-14] MEDS ORDERED: MONT10TA24 PO (14:39)
[2019-05-14] MEDS ORDERED: METO25TA6 PO (14:39)
[2019-05-14] MEDS ORDERED: VARE1TAB22 PO (14:39)
[2019-05-14] MEDS ORDERED: ALBU8.5H8 PO (14:39)
[2019-05-14] MEDS ORDERED: CARI-433 PO (14:39)
[2019-05-14] MEDS ORDERED: HYDROcodone/acetaminophen 10/325mg tab PO ONE (14:50)
[2019-05-14] MEDS ORDERED: iohexol 350MG/ML 100ml bottle IV ONE (15:14)
[2019-05-14] MEDS ORDERED: oxyCODONE IR 5mg (immed. release) tablet PO ONE (15:45)
[2019-05-14] MEDS ORDERED: zolpidem 5mg tablet PO PRN (16:25)
[2019-05-14] MEDS ORDERED: normal saline 1000ml 1,000 ML IV SCH (16:28)
[2019-05-14] MEDS ORDERED: ipratropium/albuterol 3ml nebule NEB PRN (16:30)
[2019-05-14] MEDS ORDERED: labetalol 20mg/4ml (5mg/ml) syringe IV PRN (16:40)
[2019-05-14] MEDS ORDERED: aspirin 81mg tab.chew PO ONE (16:40)
[2019-05-14 17:08] LABS: CHOL/HDL RATIO 4.6 (0.00-4.99); CHOLESTEROL 227 MG/DL (0-200); HDL CHOLESTEROL 49 MG/DL (35-60); LDL CHOLESTEROL 142 MG/DL (50-100); TRIGLYCERIDES 159 MG/DL (20-135); TROPONIN I < 0.04 NG/ML (0.0-0.05)
[2019-05-14] MEDS: atorvastatin 20mg tablet PO SCH (17:15)
[2019-05-14 17:45] VITALS: BP 152/95
[2019-05-14] MEDS: HYDROmorphone 1 mg/ml syringe IV PRN ×2 (18:15→23:02)
[2019-05-14] MEDS ORDERED: ondansetron/PF 4mg/2ml inj IV PRN (19:40)
[2019-05-14] MEDS ORDERED: varenicline tartrate 1mg tablet PO SCH (20:00)
--- NOTE | 2019-05-14 20:00 | NUR ---
pt vomiting after MRI. called MD for héctor. received medication - pt eating pizza 5 min after dose.
[2019-05-14 20:06] VITALS: BP 149/80
[2019-05-14 21:05] LABS: HEMOGLOBIN A1C 6.2 % (4.5-6.2)
[2019-05-14] MEDS: varenicline tartrate 0.5mg tablet PO SCH (21:45)
[2019-05-14] MEDS: oxyCODONE IR 5mg (immed. release) tablet PO PRN (21:45)
[2019-05-14] MEDS: clonazePAM 1mg tablet PO PRN (21:52)
[2019-05-14 22:00] VITALS: BP 145/77
[2019-05-15] VITALS (8 sets, daily range): BP systolic 113–203; BP diastolic 57–95
[2019-05-15] MEDS ORDERED: metoclopramide 5 mg/ml inj IV ONE (02:20)
[2019-05-15] MEDS ORDERED: diphenhydrAMINE 50 mg/ml inj IV ONE (02:20)
--- NOTE | 2019-05-15 02:20 | NUR ---
called Celi for persistent DELGADILLO. orders received. moved pt to private room
--- NOTE | 2019-05-15 04:37 | NUR ---
pt resting w/o distress. softly snoring. no change in neuro assessment.
[2019-05-15] MEDS: oxyCODONE IR 5mg (immed. release) tablet PO PRN (05:12)
--- NOTE | 2019-05-15 05:47 | NUR ---
reported to days. noted results of tests today, still needs echo and carotid
--- NOTE | 2019-05-15 06:05 | NUR ---
Patient in room ORTHO 4011. I have received report from Brianna ORTEGA and had the opportunity to ask questions and assume patient care.
[2019-05-15] MEDS: atorvastatin 20mg tablet PO SCH (07:17)
[2019-05-15] MEDS: aspirin 81mg tablet.DR PO SCH (07:17)
[2019-05-15] MEDS: HYDROmorphone 1 mg/ml syringe IV PRN (07:18)
[2019-05-15] MEDS: varenicline tartrate 0.5mg tablet PO SCH ×2 (07:19→20:00)
[2019-05-15] MEDS ORDERED: clonazePAM 1mg tablet PO PRN (08:00)
--- NOTE | 2019-05-15 09:37 | NUR ---
PAGER ID: [phone] MESSAGE: [id number] Klaudia Taveras. Patient c/o 03/10 headache. Has dilaudid and Oxy ordered w/ no relief. Asking for something else. MRI brain negative. C-Spine show slight bulging w/fusion c4-c6 BREMERTON [id number]
[2019-05-15] MEDS ORDERED: acetaminophen 325mg tablet PO PRN (11:15)
[2019-05-15] MEDS ORDERED: ibuprofen tablet 400 MG TABLET PO PRN (11:15)
[2019-05-15] MEDS: ibuprofen 200mg tablet PO PRN ×2 (11:44→19:38)
--- NOTE | 2019-05-15 14:48 | NUR ---
PAGER ID: [phone] MESSAGE: [id number] Sudha Taveras Tele Neuro done and report here. Also BP elevated 175/91, do you want to restart BP medications? Coby [id number]
[2019-05-15] MEDS: lisinopril 10 MG tablet PO SCH (15:10)
[2019-05-15] MEDS: metoprolol tartrate 25mg tablet PO SCH ×2 (15:10→21:18)
--- NOTE | 2019-05-15 15:25 | NUR ---
Patient in room ORTHO 4011. I have received report from JORDAN Tenorio and had the opportunity to ask questions and assume patient care.
--- NOTE | 2019-05-15 16:16 | NUR ---
PAGER ID: [phone] MESSAGE: [id number] Sudah Pickens wondering if she could get a muscle relaxer ordered. JORDAN Mckeon Ext [phone] Addendum: 05/15/19 at 1822 by Mike Lauren RN Cheri gave order for Clonidine 0.1mg now and to DC her with a new prescription for 0.1mg Clonidine BID for a quantity of 60 tabs.
[2019-05-15] MEDS: clonazePAM 1mg tablet PO PRN (16:21)
[2019-05-15] MEDS ORDERED: ASPI-1071 PO (17:26)
[2019-05-15] MEDS ORDERED: CYCL-1 PO (17:26)
[2019-05-15] MEDS ORDERED: ATOR20TA66 PO (17:26)
[2019-05-15] MEDS ORDERED: METH4TAB3 PO (17:26)
--- NOTE | 2019-05-15 17:56 | NUR ---
PAGER ID: [phone] MESSAGE: [id number] Sudha Taveras's blood pressure came back at 203/95. Do you want me to administer her 8PM Lopressor and Lisinopril early? JORDAN Mckeon Ext [phone]
[2019-05-15] MEDS ORDERED: cloNIDine 0.1 mg tablet PO STA ×2 (18:00→18:37)
--- NOTE | 2019-05-15 18:00 | NUR ---
Patient in room ORTHO 4011. I have received report from JORDAN Mckeon and had the opportunity to ask questions and assume patient care.
[2019-05-15] MEDS ORDERED: CLON0.1T2 PO (18:18)
--- NOTE | 2019-05-15 19:01 | NUR ---
Problems reprioritized. Patient report given, questions answered & plan of care reviewed with JORDAN Rios.
--- NOTE | 2019-05-15 19:27 | NUR ---
I called the public relations coordinator physician regarding getting some of the pt's new home medicine to start in the hospital; he gave me an order to start Flexeril in hospital at this time.
[2019-05-15] MEDS: cyclobenzaprine 10mg tablet PO PRN (19:38)
[2019-05-16 02:00] VITALS: BP 100/57
[2019-05-16] MEDS: cyclobenzaprine 10mg tablet PO PRN (05:35)
[2019-05-16] MEDS: ibuprofen 200mg tablet PO PRN (05:35)
[2019-05-16 06:10] VITALS: BP 112/63
--- NOTE | 2019-05-16 06:32 | NUR ---
Problems reprioritized. Patient report given, questions answered & plan of care reviewed with JORDAN Fan.
--- NOTE | 2019-05-16 06:37 | NUR ---
Patient in room ORTHO 4011. I have received report from Blanca ORTEGA and had the opportunity to ask questions and assume patient care.
[2019-05-16] MEDS: clonazePAM 1mg tablet PO PRN (07:24)
[2019-05-16] MEDS: atorvastatin 20mg tablet PO SCH (07:25)
[2019-05-16] MEDS: lisinopril 10 MG tablet PO SCH (07:25)
[2019-05-16] MEDS: aspirin 81mg tablet.DR PO SCH (07:25)
[2019-05-16] MEDS: metoprolol tartrate 25mg tablet PO SCH (07:25)
[2019-05-16] MEDS ORDERED: cloNIDine 0.1 mg tablet PO SCH (08:00)
--- NOTE | 2019-05-16 09:45 | NUR ---
Dr. Alonzo came to see the patient and talk about discharge and medications. Patient seemed to be agitated with the DrJohnna because she states she is still having pain. Dr. Alonzo explained the pain medications that she would be receiving for home, and the medications that he put her on here for the pain. He explained about follow up and pain management to control the pain. Dr. Alonzo was very calm but patient still seemed to be angry with him because she states she is in pain.
[2019-05-16 10:00] VITALS: BP 118/69
[2019-05-16] MEDS ORDERED: MELO-100 PO (10:02)
--- NOTE | 2019-05-16 10:47 | NUR ---
Patient taught all discharge medications and follow up care. Medications filled at here pharmacy.
[2019-05-16] MEDS ORDERED: METO25TA6 PO (15:50)
== END 2019-05-16 11:00 | disposition home or self-care (01) | DRG 305 ==
LOC: ER 12:16 → ED HOLD 16:28 → ORTHO 4S 17:50
PROVIDERS: ADMIT Family Medicine; ATTEND Family Medicine
PROC: B3251ZZ Computerized Tomography (CT Scan) of Bilateral Common Carotid Arteries using Low Osmolar Contrast (ICD-10-PCS; principal; 2019-05-14)
PROC: B32G1ZZ Computerized Tomography (CT Scan) of Bilateral Vertebral Arteries using Low Osmolar Contrast (ICD-10-PCS; 2019-05-14)
PROC: B3281ZZ Computerized Tomography (CT Scan) of Bilateral Internal Carotid Arteries using Low Osmolar Contrast (ICD-10-PCS; 2019-05-14)
DX: I16.0 Hypertensive urgency (principal); E78.5 Hyperlipidemia, unspecified; I10 Essential (primary) hypertension; G43.909 Migraine, unspecified, not intractable, without status migrainosus; G89.29 Other chronic pain; L40.9 Psoriasis, unspecified; M19.90 Unspecified osteoarthritis, unspecified site; M54.9 Dorsalgia, unspecified; R07.89 Other chest pain; M51.36 Other intervertebral disc degeneration, lumbar region; J44.9 Chronic obstructive pulmonary disease, unspecified; M46.02 Spinal enthesopathy, cervical region; M47.812 Spondylosis without myelopathy or radiculopathy, cervical region; Z79.82 Long term (current) use of aspirin; F17.210 Nicotine dependence, cigarettes, uncomplicated; Z79.890 Hormone replacement therapy; Z79.899 Other long term (current) drug therapy; Z80.1 Family history of malignant neoplasm of trachea, bronchus and lung; Z80.3 Family history of malignant neoplasm of breast; Z87.442 Personal history of urinary calculi; Z90.710 Acquired absence of both cervix and uterus; Z98.1 Arthrodesis status; Z71.6 Tobacco abuse counseling
CPT/HCPCS: 36415; 70450; 70460; 70491; 70496; 70498; 70544; 70551; 71045; 72052; 72141; 80053; 80061; 83036; 84484; 85025; 85651; 87081; 92508; 92616; 93005; 93306; 94760; 97110; 97116; 97163; 97530; 99285; G0378; J1170; J1200; J2405; J2765; J7030; Q9967

== ENCOUNTER 2019-08-12 13:38 | Outpatient (CLI) | payer OTHER ==
[~2019-08-12 13:38] MED LIST changes: -ALBU6.7H9 INH; +ALBU8.5H8 PO; +ASPI-1071 PO; -ATEN25TA PO; +ATOR20TA66 PO; -AZIT-63 PO; +CLON0.1T2 PO; -CLON2TAB11 PO; +CLON2TAB12 PO; -EST1T PO; -GABA300C PO; +LISI10TA4 PO; +MELO-100 PO; +METH4TAB3 PO; -TRAM50TA2 PO; +VARE1TAB22 PO; -WALKERFR; +ZOLP10TA PO; -ZOLP10TA5 PO
== END 2019-08-12 23:59 | disposition home or self-care (01) ==
LOC: 64 CT 13:38
PROVIDERS: ATTEND Orthopaedic Surgery Orthopaedic Surgery of the Spine
DX: M43.22 Fusion of spine, cervical region (principal); M54.12 Radiculopathy, cervical region; M46.02 Spinal enthesopathy, cervical region; G31.89 Other specified degenerative diseases of nervous system
CPT/HCPCS: 72040; 72125

== ENCOUNTER 2019-08-19 20:37 | Emergency (ER) | payer OTHER ==
[~2019-08-19] VITALS: Ht 170.2 cm; Wt 100.0 kg
[2019-08-19] MEDS ORDERED: diphenhydrAMINE 50 mg/ml inj IV ONE (21:15)
[2019-08-19] MEDS ORDERED: normal saline 1000ML IV soln IVB ONE (21:15)
[2019-08-19] MEDS ORDERED: metoclopramide 5 mg/ml inj IV ONE (21:15)
[2019-08-19] MEDS ORDERED: ketorolac trometh. 30mg/ml inj. IV ONE (21:15)
[2019-08-19] MEDS ORDERED: LORazepam 2 mg/ml vial IV ONE (21:30)
[2019-08-19] MEDS ORDERED: orphenadrine citrate 60mg/2ml inj. IM ONE (22:00)
[2019-08-19] MEDS ORDERED: fentaNYL/PF 50MCG/1 ML 2ML syringe IV ONE (22:00)
[2019-08-19] MEDS ORDERED: BUTA-281 PO (22:06)
[2019-08-19] MEDS ORDERED: VAL5T PO (22:10)
[2019-08-19 22:37] VITALS: BP 165/92
== END 2019-08-19 22:40 | disposition home or self-care (01) ==
LOC: ER 20:38
DX: G43.909 Migraine, unspecified, not intractable, without status migrainosus (principal); R11.2 Nausea with vomiting, unspecified; I10 Essential (primary) hypertension; J45.909 Unspecified asthma, uncomplicated; G89.29 Other chronic pain; Z87.442 Personal history of urinary calculi; Z90.49 Acquired absence of other specified parts of digestive tract; Z90.710 Acquired absence of both cervix and uterus; Z98.890 Other specified postprocedural states; Z79.82 Long term (current) use of aspirin; Z79.899 Other long term (current) drug therapy
CPT/HCPCS: 96361; 96372; 96374; 96375; 99284; J1200; J1885; J2060; J2360; J2765; J3010; J7030

== ENCOUNTER 2019-09-22 22:35 | Emergency (ER) | payer OTHER ==
[~2019-09-22] VITALS: Ht 170.2 cm; Wt 220.0 kg
[~2019-09-22 22:35] MED LIST changes: +BUTA-281 PO
[2019-09-22] MEDS ORDERED: gentamicin 0.1% topical ointment 15gm TP SCH (23:40)
[2019-09-23] MEDS ORDERED: INHA1INH2 (00:17)
[2019-09-23 00:50] VITALS: BP 162/86
== END 2019-09-23 00:35 | disposition home or self-care (01) ==
LOC: ER 22:36
DX: R05 Cough (principal); Z20.828 Contact with and (suspected) exposure to other viral communicable diseases; J45.909 Unspecified asthma, uncomplicated; R50.9 Fever, unspecified; I10 Essential (primary) hypertension; G43.909 Migraine, unspecified, not intractable, without status migrainosus; G89.29 Other chronic pain; F17.200 Nicotine dependence, unspecified, uncomplicated; Z87.440 Personal history of urinary (tract) infections; Z87.442 Personal history of urinary calculi; Z90.89 Acquired absence of other organs; Z90.710 Acquired absence of both cervix and uterus; Z79.82 Long term (current) use of aspirin; Z48.00 Encounter for change or removal of nonsurgical wound dressing
CPT/HCPCS: 36415; 87502; 87503; 87635; 99283

== ENCOUNTER 2019-10-22 22:31 | Emergency (ER) | payer OTHER ==
[~2019-10-22] VITALS: Ht 170.2 cm; Wt 97.7 kg
[~2019-10-22 22:31] MED LIST changes: +INHA1INH2
[2019-10-22 22:57] LABS: CLARITY,URINE SLIGHTLY CLOUDY (Clear); COLOR,URINE YELLOW (Yellow); GLUCOSE, URINE NEGATIVE (Neg); KETONES,URINE NEGATIVE (Neg); LEUKOCYTE ESTERASE ,URINE SMALL (Neg); NITRITES, URINE NEGATIVE (Neg); OCCULT BLOOD,URINE LARGE (Neg); PROTEIN,URINE NEGATIVE (Neg); UROBILINOGEN,URINE 0.2 E.U/dL (0.2-1.0)
[2019-10-22 23:03] LABS: UA COLLECTION TYPE CLN CATCH MIDSTREAM
[2019-10-22 23:06] LABS: RBC,URINE 20-50 /HPF (0-2); WBC,URINE 20-30 /HPF (0-4)
[2019-10-22 23:07] LABS: BACTERIA,URINE 2+ /HPF (Neg); SQUAMOUS EPITHELIAL CELL,UR MODERATE /LPF (FEW)
[2019-10-22 23:08] LABS: AMMONIUM BIURATE CRYSTALS 1+ /HPF (NEGATIVE)
[2019-10-22] MEDS ORDERED: metoclopramide 5 mg/ml inj IV ONE (23:10)
[2019-10-22] MEDS ORDERED: ketorolac tromethamine 15mg/ml inj. IV ONE (23:10)
--- NOTE | 2019-10-22 23:30 | NUR ---
CLARIFIED MED ORDER FOR IV MEDICATION THAN IM AND PO REGLAN NO NEW ORDERS
[2019-10-22 23:39] LABS: URINE HCG NEGATIVE (NEG)
[2019-10-23 00:15] VITALS: BP 140/79
[2019-10-23] MEDS ORDERED: normal saline 1000ML IV soln IVB ONE (00:20)
[2019-10-23] MEDS ORDERED: acetaminophen w/codeine (30MG) #3 tablet PO ONE (00:20)
[2019-10-23] MEDS ORDERED: CefTRIAXone/D5W-Rocephin 1gm 50 ML IV SCH ×2 (00:30→08:00)
[2019-10-23] MEDS ORDERED: CefTRIAXone/D5W-Rocephin 1gm 50 ML IV ONE (00:35)
[2019-10-23] MEDS ORDERED: ACET-3068 PO (00:40)
[2019-10-23] MEDS ORDERED: CEPH500C5 PO (00:40)
== END 2019-10-23 01:10 | disposition home or self-care (01) ==
LOC: ER 22:32
DX: N39.0 Urinary tract infection, site not specified (principal); N20.0 Calculus of kidney; G43.909 Migraine, unspecified, not intractable, without status migrainosus; I10 Essential (primary) hypertension; J45.909 Unspecified asthma, uncomplicated; G89.29 Other chronic pain; Z90.49 Acquired absence of other specified parts of digestive tract; Z90.710 Acquired absence of both cervix and uterus; Z98.890 Other specified postprocedural states; Z79.82 Long term (current) use of aspirin; Z79.899 Other long term (current) drug therapy
CPT/HCPCS: 81001; 81025; 87077; 87088; 87186; 96365; 96375; 99284; J0696; J1885; J2765; J7030

== ENCOUNTER 2019-12-19 19:41 | Emergency (ER) | payer OTHER ==
[~2019-12-19] VITALS: Ht 170.2 cm; Wt 97.3 kg
[~2019-12-19 19:41] MED LIST changes: +CEPH500C5 PO
[2019-12-19] MEDS ORDERED: ondansetron 4mg rapidly disintigrating tab PO ONE (20:15)
[2019-12-19] MEDS ORDERED: acetaminophen 325mg tablet PO ONE (20:15)
[2019-12-19 20:31] LABS: BASOPHILS # (AUTO) 0.1 X10'3 (0-0.2); BASOPHILS % (AUTO) 1.1 % (0-1); EOSINOPHILS # (AUTO) 0.2 X10'3 (0-0.9); EOSINOPHILS % (AUTO) 2.3 % (0-6); HEMATOCRIT 41.1 % (35.0-45.0); HEMOGLOBIN 13.8 g/dl (12.0-16.0); LYMPHOCYTES # (AUTO) 3.4 X10'3 (1.1-4.8); MEAN CORPUSCULAR HEMOGLOBIN 31.1 PG (27.0-31.0); MEAN CORPUSCULAR HGB CONC 33.5 g/dL (33.0-36.5); MEAN CORPUSCULAR VOLUME 92.9 FL (78-98); MEAN PLATELET VOLUME 8.1 FL (7.4-10.4); MONOCYTES # (AUTO) 0.7 X10'3 (0-0.9); MONOCYTES % (AUTO) 8.6 % (2-12); NEUTROPHILS # (AUTO) 3.6 X10'3 (1.8-7.7); PLATELET COUNT 279 X10'3 (140-440); RED BLOOD COUNT 4.43 X10'6 (4.20-5.60); RED CELL DISTRIBUTION WIDTH 13.7 % (11.5-14.5)
[2019-12-19 20:35] LABS: CLARITY,URINE SLIGHTLY CLOUDY (Clear); COLOR,URINE YELLOW (Yellow); GLUCOSE, URINE NEGATIVE (Neg); KETONES,URINE NEGATIVE (Neg); LEUKOCYTE ESTERASE ,URINE NEGATIVE (Neg); NITRITES, URINE NEGATIVE (Neg); OCCULT BLOOD,URINE NEGATIVE (Neg); PH,URINE 5.5 (4.8-8.0); PROTEIN,URINE NEGATIVE (Neg); UROBILINOGEN,URINE 0.2 E.U/dL (0.2-1.0)
[2019-12-19 20:38] LABS: UA COLLECTION TYPE CLN CATCH MIDSTREAM
[2019-12-19 20:41] LABS: URINE HCG NEGATIVE (NEG)
[2019-12-19 20:45] LABS: ALANINE AMINOTRANSFERASE 53 U/L (12-78); ALBUMIN 3.7 G/DL (3.4-5.0); ALBUMIN/GLOBULIN RATIO 1.1 (1.1-1.5); ALKALINE PHOSPHATASE 97 IU/L (46-116); ANION GAP 8 (8-16); ASPARTATE AMINO TRANSFERASE 19 U/L (10-37); BILIRUBIN,TOTAL 0.2 MG/DL (0.1-1.0); BLOOD UREA NITROGEN 13 MG/DL (7-18); BUN/CREATININE RATIO 13.7 (6.6-38.0); CALCIUM 9.8 MG/DL (8.5-10.1); CHLORIDE 109 MMOL/L (99-107); CREATININE 0.95 MG/DL (0.40-0.90); GLUCOSE 141 MG/DL (70-104); LIPASE 219 U/L (73-393); SODIUM 145 MMOL/L (135-145); TOTAL CARBON DIOXIDE 27.8 MMOL/L (24-32); TOTAL PROTEIN 7.2 G/DL (6.4-8.2); eGFR 63 ML/MIN
[2019-12-19 20:46] LABS: POTASSIUM 3.9 MMOL/L (3.5-5.1)
--- NOTE | 2019-12-19 21:53 | NUR ---
PT IN ROOM AND BACK FROM CT
[2019-12-19] MEDS ORDERED: normal saline 1000ml 1,000 ML IV ONE (22:05)
[2019-12-19] MEDS: ondansetron/PF 4mg/2ml inj IV PRN ×3 (22:39→23:57)
[2019-12-19] MEDS: morphine 4 MG/ML inj SYRINge IV PRN ×3 (22:39→23:56)
[2019-12-19 22:49] LABS: BACTERIA,URINE FEW /HPF (Neg); RBC,URINE 0 /HPF (0-2); SQUAMOUS EPITHELIAL CELL,UR MODERATE /LPF (FEW); WBC,URINE 0-4 /HPF (0-4)
[2019-12-19] MEDS ORDERED: metroNIDAZOLE-Flagyl 500mg/NS 100 ML IV STA (22:52)
[2019-12-19] MEDS ORDERED: normal saline 1000ML IV soln IVB ONE (22:55)
[2019-12-19] MEDS ORDERED: ciprofloxacin lact 400MG/200ML 200 ML IV ONE (23:30)
[2019-12-20] MEDS: morphine 4 MG/ML inj SYRINge IV PRN ×2 (01:07→02:06)
[2019-12-20] MEDS ORDERED: CIPR-259 PO (01:48)
[2019-12-20] MEDS ORDERED: METR500T PO (01:48)
[2019-12-20] MEDS ORDERED: ONDA4TAB6 PO (01:48)
[2019-12-20] MEDS ORDERED: DIPH1TAB PO (01:48)
[2019-12-20] MEDS ORDERED: HYDR-3965 PO (01:48)
[2019-12-20 02:22] VITALS: BP 139/77
[2019-12-20] MEDS ORDERED: ciprofloxacin lact 400MG/200ML 200 ML IV SCH ×2 (08:00)
== END 2019-12-20 02:23 | disposition home or self-care (01) ==
LOC: ER 19:42 → EEVIPCON 19:42 → ER 12-20 02:23
DX: K52.9 Noninfective gastroenteritis and colitis, unspecified (principal); R10.31 Right lower quadrant pain; R11.10 Vomiting, unspecified; G43.909 Migraine, unspecified, not intractable, without status migrainosus; I10 Essential (primary) hypertension; J45.909 Unspecified asthma, uncomplicated; G89.29 Other chronic pain; Z87.01 Personal history of pneumonia (recurrent); Z87.442 Personal history of urinary calculi; Z87.440 Personal history of urinary (tract) infections; Z90.49 Acquired absence of other specified parts of digestive tract; Z90.710 Acquired absence of both cervix and uterus; Z98.890 Other specified postprocedural states; Z79.82 Long term (current) use of aspirin; Z79.2 Long term (current) use of antibiotics; Z79.899 Other long term (current) drug therapy
CPT/HCPCS: 36415; 74176; 76856; 80053; 81001; 81025; 83690; 85025; 93976; 96361; 96365; 96366; 96368; 96375; 96376; 99285; J0744; J2270; J2405; J3490; J7030

== ENCOUNTER 2019-12-24 22:50 | Observation (INO) | payer BC, OTHER ==
[~2019-12-24] VITALS: Ht 170.2 cm; Wt 97.7 kg
[~2019-12-24 22:50] MED LIST changes: +CIPR-259 PO; +DIPH1TAB PO; +HYDR-3965 PO; +METR500T PO; +ONDA4TAB6 PO
[2019-12-24] MEDS ORDERED: ondansetron/PF 4mg/2ml inj IV ONE (23:40)
[2019-12-24] MEDS ORDERED: normal saline 1000ML IV soln IVB ONE (23:40)
[2019-12-25] MEDS: morphine 4 MG/ML inj SYRINge IV PRN ×3 (00:13→06:45)
[2019-12-25 00:35] LABS: BASOPHILS # (AUTO) 0.1 X10'3 (0-0.2); EOSINOPHILS # (AUTO) 0.2 X10'3 (0-0.9); EOSINOPHILS % (AUTO) 2.8 % (0-6); HEMATOCRIT 44.3 % (35.0-45.0); HEMOGLOBIN 14.8 g/dl (12.0-16.0); LYMPHOCYTES # (AUTO) 2.9 X10'3 (1.1-4.8); LYMPHOCYTES % (AUTO) 40.4 % (21-51); MEAN CORPUSCULAR HEMOGLOBIN 31.5 PG (27.0-31.0); MEAN CORPUSCULAR HGB CONC 33.4 g/dL (33.0-36.5); MEAN CORPUSCULAR VOLUME 94.5 FL (78-98); MEAN PLATELET VOLUME 7.6 FL (7.4-10.4); MONOCYTES # (AUTO) 0.7 X10'3 (0-0.9); MONOCYTES % (AUTO) 9.6 % (2-12); NEUTROPHILS # (AUTO) 3.3 X10'3 (1.8-7.7); NEUTROPHILS % (AUTO) 46.2 % (42-75); PLATELET COUNT 299 X10'3 (140-440); RED BLOOD COUNT 4.69 X10'6 (4.20-5.60); RED CELL DISTRIBUTION WIDTH 13.7 % (11.5-14.5); WHITE BLOOD COUNT 7.2 X10'3 (4.5-11.0)
[2019-12-25 00:51] LABS: ALANINE AMINOTRANSFERASE 158 U/L (12-78); ALBUMIN 4.2 G/DL (3.4-5.0); ALBUMIN/GLOBULIN RATIO 1.1 (1.1-1.5); ALKALINE PHOSPHATASE 91 IU/L (46-116); ANION GAP 9 (8-16); ASPARTATE AMINO TRANSFERASE 64 U/L (10-37); BILIRUBIN,TOTAL 0.3 MG/DL (0.1-1.0); BLOOD UREA NITROGEN 8 MG/DL (7-18); BUN/CREATININE RATIO 8.2 (6.6-38.0); CALCIUM 9.5 MG/DL (8.5-10.1); CHLORIDE 106 MMOL/L (99-107); CREATININE 0.98 MG/DL (0.40-0.90); GLUCOSE 127 MG/DL (70-104); LIPASE 154 U/L (73-393); POTASSIUM 3.7 MMOL/L (3.5-5.1); SODIUM 144 MMOL/L (135-145); TOTAL CARBON DIOXIDE 28.9 MMOL/L (24-32); eGFR 61 ML/MIN
[2019-12-25] MEDS ORDERED: fentaNYL/PF 50MCG/1 ML 2ML syringe IV ONE (01:05)
[2019-12-25 01:26] LABS: CLARITY,URINE CLOUDY (Clear); COLOR,URINE YELLOW (Yellow); GLUCOSE, URINE NEGATIVE (Neg); KETONES,URINE NEGATIVE (Neg); LEUKOCYTE ESTERASE ,URINE TRACE (Neg); NITRITES, URINE NEGATIVE (Neg); OCCULT BLOOD,URINE NEGATIVE (Neg); PH,URINE 6.5 (4.8-8.0); PROTEIN,URINE NEGATIVE (Neg); UROBILINOGEN,URINE 0.2 E.U/dL (0.2-1.0)
[2019-12-25 01:27] LABS: URINE HCG NEGATIVE (NEG)
[2019-12-25 01:41] LABS: UA COLLECTION TYPE VOIDED
[2019-12-25 01:43] LABS: BACTERIA,URINE 1+ /HPF (Neg); CAL OXALATE CRYSTALS 3+ /HPF (NEGATIVE); RBC,URINE NONE SEEN /HPF (0-2); SQUAMOUS EPITHELIAL CELL,UR FEW /LPF (FEW); WBC,URINE 0-4 /HPF (0-4)
[2019-12-25] MEDS ORDERED: CLON0.1T PO (01:53)
[2019-12-25] MEDS ORDERED: CARV6.252 PO (01:54)
[2019-12-25] MEDS ORDERED: ONDA4TAB6 PO (01:56)
[2019-12-25] MEDS ORDERED: DIPH-186 PO (01:56)
[2019-12-25] MEDS ORDERED: MONT10TA21 PO (01:56)
[2019-12-25] MEDS ORDERED: CARI350T PO (01:57)
[2019-12-25] MEDS ORDERED: magnesium 2GM in 50ml NS 50 ML IV PRN (02:00)
[2019-12-25] MEDS ORDERED: magnesium Cl slow-release 64mg tablet PO PRN (02:00)
[2019-12-25] MEDS ORDERED: potassium CL 10mEq/100ml bag 100 ML IV PRN ×2 (02:00)
[2019-12-25] MEDS ORDERED: magnesium 4gm in 100ml NS 100 ML IV PRN (02:00)
[2019-12-25] MEDS ORDERED: potassium Cl 20 mEq SR tablet PO PRN ×2 (02:00)
[2019-12-25] MEDS: morphine 2 MG/ML inj. syringe IV PRN ×2 (02:16→20:13)
[2019-12-25 03:17] LABS: OCCULT BLOOD STOOL NEGATIVE (Neg)
[2019-12-25] MEDS: normal saline 1000ml 1,000 ML IV SCH ×3 (03:25→21:56)
[2019-12-25 03:30] VITALS: BP 153/105
--- NOTE | 2019-12-25 03:59 | NUR ---
351 Sudha Taveras admit 12/24 intractable abdominal pain. morphine is not working. can she get another pain medication? Earlene RN Surg [id number]
[2019-12-25] MEDS ORDERED: HYDROmorphone 1 mg/ml syringe IV ONE (04:05)
--- NOTE | 2019-12-25 04:10 | NUR ---
Dr. Baxter called. new orders given . will continue to monitor.
[2019-12-25] MEDS ORDERED: cloNIDine 0.1 mg tablet PO PRN (04:40)
[2019-12-25] MEDS ORDERED: clonazePAM 1mg tablet PO PRN (04:40)
[2019-12-25] MEDS: ondansetron/PF 4mg/2ml inj IV PRN ×3 (05:52→18:03)
--- NOTE | 2019-12-25 06:02 | NUR ---
351 Sudha Taveras new admit 12/24 pt inquire about her pain medications and breakthrough. SURG [id number] Earlene ORTEGA
--- NOTE | 2019-12-25 06:15 | NUR ---
new orders given. will continue to monitor.
--- NOTE | 2019-12-25 06:43 | NUR ---
Problems reprioritized. Patient report given, questions answered & plan of care reviewed with Shaina ORTEGA.
--- NOTE | 2019-12-25 06:48 | NUR ---
Patient in room [facility]SET[facility] 351. I have received report from Earlene Boland and had the opportunity to ask questions and assume patient care.
[2019-12-25] MEDS: pantoprazole 40 MG vial IV SCH (07:58)
[2019-12-25] MEDS: atorvastatin 20mg tablet PO SCH (07:59)
[2019-12-25] MEDS: carvedilol 6.25mg tablet PO SCH ×2 (08:00→20:07)
[2019-12-25] MEDS: metroNIDAZOLE-Flagyl 500mg/NS 100 ML IV SCH ×2 (08:00→16:29)
[2019-12-25] MEDS: ciprofloxacin lact 400MG/200ML 200 ML IV SCH ×2 (08:00→20:07)
[2019-12-25] MEDS: lisinopril 10 MG tablet PO SCH ×2 (08:00→20:07)
[2019-12-25] MEDS: K and/or MAG REPLACEMENT MC SCH ×2 (08:00→19:57)
[2019-12-25] MEDS ORDERED: PEG 3350/Na sulf,bicarb,Cl/KCl oral sol 4 liter bottle PO ONE (09:10)
[2019-12-25] MEDS ORDERED: bisacodyl 10mg suppository rectal RC PRN (09:10)
--- NOTE | 2019-12-25 10:00 | NUR ---
Pt is DC to home with his mom. Mom lives out of town so pt is taking the train home. Pt needs to leave by 1000 because the train leaves at 1030. Pt I A & O, in no apparent pain. Pt states understanding of all DC orders and verbalized the importance of following up with a PCP within the next 1-2 weeks. Pt Needs to follow up with a GI Dr to address his GI issues. Pt has been eating a regular diet and has not had any issues with digestion. no N or V. Pt had no belongings other than his cell and charger tester. pt was provided a shirt before his DC. Pt was walked to the front to go to train station.
[2019-12-25] MEDS: HYDROmorphone 1 mg/ml syringe IV PRN ×2 (11:16→16:52)
[2019-12-25 12:00] VITALS: BP 125/72
[2019-12-25] MEDS ORDERED: fluconazole 150mg tablet PO ONE (12:50)
--- NOTE | 2019-12-25 17:30 | NUR ---
PAGER ID: [phone] MESSAGE: Prabha Taveras #[phone] - FYI pt had a BM---large one!
[2019-12-25 18:00] VITALS: BP 138/73
--- NOTE | 2019-12-25 18:42 | NUR ---
Problems reprioritized. Patient report given, questions answered & plan of care reviewed with Prudence RN.
[2019-12-25] MEDS ORDERED: HYDROcodone/acetaminophen 5mg/325mg tablet PO PRN (18:50)
--- NOTE | 2019-12-25 19:05 | NUR ---
Patient in room LISSET[facility] 351. I have received report from Shaina ORTEGA and had the opportunity to ask questions and assume patient care.
[2019-12-25] MEDS: lactobacillus rhamnosus 10,000 MMU CELLS/CAPSULE PO SCH (20:07)
--- NOTE | 2019-12-25 22:29 | NUR ---
Patient in room [facility]IS[facility] 351. I have received report from JORDAN Saucedo and had the opportunity to ask questions and assume patient care. Addendum: 12/25/19 at 2230 by Mady Weaver RN Amended: Links added.
--- NOTE | 2019-12-25 23:37 | NUR ---
Problems reprioritized. Patient report given, questions answered & plan of care reviewed with Precious ORTEGA.
[2019-12-26] VITALS: BP 129/51
[2019-12-26] MEDS: metroNIDAZOLE-Flagyl 500mg/NS 100 ML IV SCH ×2 (00:51→08:18)
[2019-12-26] MEDS: ondansetron/PF 4mg/2ml inj IV PRN (00:51)
[2019-12-26] MEDS: HYDROmorphone 1 mg/ml syringe IV PRN ×2 (00:52→08:19)
[2019-12-26] MEDS: normal saline 1000ml 1,000 ML IV SCH (03:17)
[2019-12-26 05:01] LABS: BASOPHILS % (AUTO) 0.5 % (0-1); EOSINOPHILS # (AUTO) 0.2 X10'3 (0-0.9); HEMATOCRIT 36.8 % (35.0-45.0); HEMOGLOBIN 12.2 g/dl (12.0-16.0); LYMPHOCYTES # (AUTO) 2.2 X10'3 (1.1-4.8); MEAN CORPUSCULAR HGB CONC 33.2 g/dL (33.0-36.5); MEAN CORPUSCULAR VOLUME 93.3 FL (78-98); MEAN PLATELET VOLUME 7.5 FL (7.4-10.4); MONOCYTES # (AUTO) 0.6 X10'3 (0-0.9); MONOCYTES % (AUTO) 11.1 % (2-12); NEUTROPHILS # (AUTO) 2.4 X10'3 (1.8-7.7); NEUTROPHILS % (AUTO) 44.4 % (42-75); PLATELET COUNT 237 X10'3 (140-440); RED BLOOD COUNT 3.95 X10'6 (4.20-5.60); RED CELL DISTRIBUTION WIDTH 13.5 % (11.5-14.5); WHITE BLOOD COUNT 5.5 X10'3 (4.5-11.0)
[2019-12-26 05:02] LABS: ALBUMIN 2.9 G/DL (3.4-5.0); ANION GAP 5 (8-16); BLOOD UREA NITROGEN 4 MG/DL (7-18); BUN/CREATININE RATIO 5.6 (6.6-38.0); CHLORIDE 112 MMOL/L (99-107); CREATININE 0.71 MG/DL (0.40-0.90); GLUCOSE 111 MG/DL (70-104); MAGNESIUM 1.8 MG/DL (1.5-2.4); POTASSIUM 3.8 MMOL/L (3.5-5.1); SODIUM 144 MMOL/L (135-145); TOTAL CARBON DIOXIDE 26.7 MMOL/L (24-32); eGFR 88 ML/MIN
--- NOTE | 2019-12-26 06:17 | NUR ---
Problems reprioritized. Patient report given, questions answered & plan of care reviewed with JORDAN Thomson.
[2019-12-26 08:00] VITALS: BP 128/70
[2019-12-26] MEDS: pantoprazole 40 MG vial IV SCH (08:18)
[2019-12-26] MEDS: atorvastatin 20mg tablet PO SCH (08:19)
[2019-12-26 08:20] VITALS: BP_SYST 128
[2019-12-26] MEDS: carvedilol 6.25mg tablet PO SCH (08:20)
[2019-12-26] MEDS: lisinopril 10 MG tablet PO SCH (08:20)
[2019-12-26] MEDS: lactobacillus rhamnosus 10,000 MMU CELLS/CAPSULE PO SCH (08:20)
--- NOTE | 2019-12-26 10:10 | NUR ---
Patient discharged to home into the care of . Patient alert, oriented, and appropriate for discharge. Patient verbalized understanding of discharge instructions and has an appointment with primary care provider for saturday. Patient has no tele, IV removed. MD informed patient to continue home flagyl and cipro until medication completion. Patient left with all belongings, patient escorted down by member of the staff.
[2019-12-27] MEDS ORDERED: methylnaltrexone br 12mg/0.6ml inj***SubQ only SQ SCH (08:00)
== END 2019-12-26 10:19 | disposition home or self-care (01) ==
LOC: ER 22:50 → ED HOLD 12-25 02:07 → UNDOADMOB 12-25 02:07 → ED HOLD 12-25 03:10 → SUR 3N 12-25 03:10
PROVIDERS: ADMIT Internal Medicine; ATTEND Family Medicine
DX: R10.84 Generalized abdominal pain (principal); R11.2 Nausea with vomiting, unspecified; R19.7 Diarrhea, unspecified; N17.9 Acute kidney failure, unspecified; R74.0 Nonspecific elevation of levels of transaminase and lactic acid dehydrogenase [LDH]; I10 Essential (primary) hypertension; E78.5 Hyperlipidemia, unspecified; J45.909 Unspecified asthma, uncomplicated; G43.909 Migraine, unspecified, not intractable, without status migrainosus; G89.29 Other chronic pain; M54.9 Dorsalgia, unspecified; F17.210 Nicotine dependence, cigarettes, uncomplicated; Z87.442 Personal history of urinary calculi; Z90.49 Acquired absence of other specified parts of digestive tract; Z90.710 Acquired absence of both cervix and uterus; Z79.899 Other long term (current) drug therapy
CPT/HCPCS: 36415; 74018; 80048; 80053; 81001; 81025; 82272; 83690; 83735; 85025; 87081; 87088; 96361; 96365; 96366; 96368; 96375; 96376; 99284; C9113; G0378; J0744; J1170; J2270; J2405; J3010; J3490; J7030

== ENCOUNTER 2020-01-16 18:15 | Emergency (ER) | payer BC ==
[~2020-01-16] VITALS: Ht 170.2 cm; Wt 97.7 kg
[~2020-01-16 18:15] MED LIST changes: -ASPI-1071 PO; -BUTA-281 PO; +CARI350T PO; +CARV6.252 PO; -CEPH500C5 PO; -CIPR-259 PO; +CLON0.1T PO; -CLON0.1T2 PO; -CYCL-1 PO; -DIPH1TAB PO; -HYDR-3965 PO; -METH4TAB3 PO; -METO25TA6 PO; -METR500T PO; +MONT10TA21 PO; -VARE1TAB22 PO
[2020-01-16 19:09] LABS: BASOPHILS # (AUTO) 0.1 X10'3 (0-0.2); BASOPHILS % (AUTO) 0.8 % (0-1); EOSINOPHILS # (AUTO) 0.2 X10'3 (0-0.9); EOSINOPHILS % (AUTO) 2.7 % (0-6); HEMATOCRIT 45.3 % (35.0-45.0); HEMOGLOBIN 15.2 g/dl (12.0-16.0); LYMPHOCYTES # (AUTO) 3.3 X10'3 (1.1-4.8); LYMPHOCYTES % (AUTO) 45.3 % (21-51); MEAN CORPUSCULAR HEMOGLOBIN 31.2 PG (27.0-31.0); MEAN CORPUSCULAR HGB CONC 33.6 g/dL (33.0-36.5); MEAN CORPUSCULAR VOLUME 92.8 FL (78-98); MEAN PLATELET VOLUME 7.7 FL (7.4-10.4); MONOCYTES # (AUTO) 0.6 X10'3 (0-0.9); MONOCYTES % (AUTO) 8.2 % (2-12); NEUTROPHILS # (AUTO) 3.2 X10'3 (1.8-7.7); PLATELET COUNT 294 X10'3 (140-440); RED BLOOD COUNT 4.88 X10'6 (4.20-5.60); RED CELL DISTRIBUTION WIDTH 13.4 % (11.5-14.5); WHITE BLOOD COUNT 7.4 X10'3 (4.5-11.0)
[2020-01-16 19:12] LABS: URINE HCG NEGATIVE (NEG)
[2020-01-16 19:14] LABS: CLARITY,URINE CLEAR (Clear); COLOR,URINE YELLOW (Yellow); GLUCOSE, URINE NEGATIVE (Neg); KETONES,URINE NEGATIVE (Neg); LEUKOCYTE ESTERASE ,URINE NEGATIVE (Neg); NITRITES, URINE NEGATIVE (Neg); OCCULT BLOOD,URINE NEGATIVE (Neg); PH,URINE 5.5 (4.8-8.0); PROTEIN,URINE NEGATIVE (Neg); UROBILINOGEN,URINE 0.2 E.U/dL (0.2-1.0)
[2020-01-16 19:16] LABS: UA COLLECTION TYPE CLN CATCH MIDSTREAM
[2020-01-16 19:25] LABS: ALANINE AMINOTRANSFERASE 80 U/L (12-78); ALBUMIN 4.1 G/DL (3.4-5.0); ALKALINE PHOSPHATASE 100 IU/L (46-116); ANION GAP 8 (8-16); ASPARTATE AMINO TRANSFERASE 30 U/L (10-37); BILIRUBIN,TOTAL 0.3 MG/DL (0.1-1.0); BLOOD UREA NITROGEN 8 MG/DL (7-18); BUN/CREATININE RATIO 8.2 (6.6-38.0); CHLORIDE 102 MMOL/L (99-107); CREATININE 0.97 MG/DL (0.40-0.90); GLUCOSE 146 MG/DL (70-104); LIPASE 327 U/L (73-393); POTASSIUM 4.1 MMOL/L (3.5-5.1); SODIUM 139 MMOL/L (135-145); TOTAL CARBON DIOXIDE 28.6 MMOL/L (24-32); TOTAL PROTEIN 8.4 G/DL (6.4-8.2); eGFR 61 ML/MIN
[2020-01-16] MEDS ORDERED: dicyclomine 10 MG capsule PO ONE (19:55)
[2020-01-16] MEDS ORDERED: pantoprazole 40mg Tablet.DR PO ONE (19:55)
[2020-01-16] MEDS ORDERED: HYDROcodone/acetaminophen 5mg/325mg tablet PO ONE (19:55)
[2020-01-16] MEDS ORDERED: mag hydrox/Alum hydrox/simeth 30ml oral suspension PO ONE (19:55)
[2020-01-16] MEDS ORDERED: iohexol 300mg/ml 100ml inj. ONE (20:17)
[2020-01-16] MEDS ORDERED: proCHLORperazine 10 MG/2 ml inj IV ONE (20:35)
[2020-01-16] MEDS ORDERED: diphenhydrAMINE 50 mg/ml inj IV ONE (20:35)
[2020-01-16] MEDS ORDERED: magnesium citrate 296ml oral solution PO ONE (21:15)
[2020-01-16] MEDS ORDERED: normal saline 1000ML IV soln IVB ONE (21:15)
[2020-01-16] MEDS ORDERED: morphine 4 MG/ML inj SYRINge IV ONE (21:15)
[2020-01-16] MEDS ORDERED: ONDA4TAB6 PO (22:14)
[2020-01-16] MEDS ORDERED: DOCU100C40 PO (22:14)
[2020-01-16 22:31] VITALS: BP 120/76
== END 2020-01-16 22:29 | disposition home or self-care (01) ==
LOC: ER 18:15 → EEVIPCON 18:15 → ER 22:29
DX: K58.9 Irritable bowel syndrome, unspecified (principal); R11.2 Nausea with vomiting, unspecified; R10.11 Right upper quadrant pain; K59.00 Constipation, unspecified; G43.909 Migraine, unspecified, not intractable, without status migrainosus; I10 Essential (primary) hypertension; J45.909 Unspecified asthma, uncomplicated; G89.29 Other chronic pain; Z87.01 Personal history of pneumonia (recurrent); Z87.442 Personal history of urinary calculi; Z87.440 Personal history of urinary (tract) infections; Z90.49 Acquired absence of other specified parts of digestive tract; Z90.710 Acquired absence of both cervix and uterus; Z98.890 Other specified postprocedural states; Z79.899 Other long term (current) drug therapy
CPT/HCPCS: 36415; 74177; 80053; 81003; 81025; 83690; 85025; 96361; 96374; 96375; 99285; J0780; J1200; J2270; J7030; Q9967

== ENCOUNTER 2020-02-26 10:34 | Day surgery (SDC) | payer BC ==
[~2020-02-26] VITALS: Ht 170.2 cm; Wt 96.4 kg
[~2020-02-26 10:34] MED LIST changes: +DOCU100C40 PO
[2020-02-26 10:40] VITALS: BP 153/85
[2020-02-26] MEDS ORDERED: fentaNYL/PF 50MCG/1 ML 2ML syringe ONE (11:38)
[2020-02-26] MEDS ORDERED: MIDAZolam 5mg/5ml vial ONE (11:38)
[2020-02-26] MEDS ORDERED: IBUP-1984 PO (11:43)
[2020-02-26 12:35] VITALS: BP 119/54
[2020-02-26 12:45] VITALS: BP 117/73
[2020-02-26 12:55] VITALS: BP 129/72
== END 2020-02-26 13:05 | disposition home or self-care (01) ==
LOC: GI LAB 10:34
PROVIDERS: ATTEND Internal Medicine Gastroenterology
DX: R10.9 Unspecified abdominal pain (principal); K59.00 Constipation, unspecified; D12.3 Benign neoplasm of transverse colon; K64.8 Other hemorrhoids; K63.89 Other specified diseases of intestine
CPT/HCPCS: 45380; 45385; 99152; 99153; C1773; J2250; J3010; J7040; A4620

== ENCOUNTER → 2020-05-28 | Outpatient (CLI) | payer OTHER ==
[~2020-05-28] MED LIST changes: +IBUP-1984 PO
== END | disposition home or self-care (01) ==
LOC: LAB 11:06
PROVIDERS: ATTEND Internal Medicine Infectious Disease
DX: Z53.21 Procedure and treatment not carried out due to patient leaving prior to being seen by health care provider (principal)

== ENCOUNTER → 2020-11-21 | Outpatient (CLI) | payer BC ==
[~2020-11-21] MED LIST changes: +LISI10TA27 PO; -LISI10TA4 PO
== END | disposition home or self-care (01) ==
LOC: RAD 10:26
PROVIDERS: ATTEND Family Medicine
DX: M48.061 Spinal stenosis, lumbar region without neurogenic claudication (principal); M25.78 Osteophyte, vertebrae
CPT/HCPCS: 72148

== ENCOUNTER 2020-12-23 11:17 | Emergency (ER) | payer BC ==
[~2020-12-23] VITALS: Ht 170.2 cm; Wt 95.5 kg
[2020-12-23] MEDS ORDERED: LIDOcaine 5% patch TP ONE (12:05)
[2020-12-23] MEDS ORDERED: dexamethasone sod phosphate 10mg/ml inj IM STA (12:05)
[2020-12-23] MEDS ORDERED: morphine 2 MG/ML inj. syringe IV ONE (12:05)
[2020-12-23] MEDS ORDERED: DEXA6TAB6 PO (12:36)
[2020-12-23] MEDS ORDERED: ondansetron 4mg rapidly disintigrating tab PO ONE (12:45)
[2020-12-23] MEDS ORDERED: ketorolac trometh. 30mg/ml inj. IM ONE (14:20)
[2020-12-23] MEDS ORDERED: diazepam inj 5 MG/ML inj. IV ONE (15:10)
[2020-12-23] MEDS ORDERED: DIAZ5TAB22 PO (17:09)
[2020-12-23 17:32] VITALS: BP 179/109
== END 2020-12-23 17:39 | disposition home or self-care (01) ==
LOC: EEVIPCON 11:18 → ER 11:18
DX: S31.010A Laceration without foreign body of lower back and pelvis without penetration into retroperitoneum, initial encounter (principal); M51.26 Other intervertebral disc displacement, lumbar region; G43.909 Migraine, unspecified, not intractable, without status migrainosus; I10 Essential (primary) hypertension; G89.29 Other chronic pain; Z87.442 Personal history of urinary calculi; Z90.49 Acquired absence of other specified parts of digestive tract; Z90.710 Acquired absence of both cervix and uterus; Z98.890 Other specified postprocedural states; Z79.899 Other long term (current) drug therapy; X58.XXXA Exposure to other specified factors, initial encounter; Y93.89 Activity, other specified; Y92.89 Other specified places as the place of occurrence of the external cause; Y99.8 Other external cause status
CPT/HCPCS: 96372; 96374; 96375; 99285; J1100; J1885; J2270; J3360

== ENCOUNTER 2021-05-08 07:43 | Outpatient (CLI) | payer BC ==
[~2021-05-08 07:43] MED LIST changes: +ALBU8.5H17 PO; -ALBU8.5H8 PO; +DEXA6TAB6 PO
[2021-05-08 10:47] LABS: BASOPHILS # (AUTO) 0.1 X10'3 (0-0.2); BASOPHILS % (AUTO) 0.8 % (0-1); EOSINOPHILS # (AUTO) 0.1 X10'3 (0-0.9); HEMATOCRIT 43.3 % (35.0-45.0); HEMOGLOBIN 14.7 g/dl (12.0-16.0); LYMPHOCYTES % (AUTO) 43.7 % (21-51); MEAN CORPUSCULAR HEMOGLOBIN 31.3 PG (27.0-31.0); MEAN CORPUSCULAR HGB CONC 33.9 g/dL (33.0-36.5); MEAN CORPUSCULAR VOLUME 92.4 FL (78-98); MEAN PLATELET VOLUME 8.2 FL (7.4-10.4); MONOCYTES # (AUTO) 0.6 X10'3 (0-0.9); NEUTROPHILS # (AUTO) 3.1 X10'3 (1.8-7.7); NEUTROPHILS % (AUTO) 45.5 % (42-75); PLATELET COUNT 246 X10'3 (140-440); RED BLOOD COUNT 4.69 X10'6 (4.20-5.60); RED CELL DISTRIBUTION WIDTH 13.3 % (11.5-14.5); WHITE BLOOD COUNT 6.9 X10'3 (4.5-11.0)
== END 2021-05-08 23:59 | disposition home or self-care (01) ==
LOC: LAB 07:43
PROVIDERS: ATTEND Anesthesiology Pain Medicine
DX: M54.50 Low back pain, unspecified (principal); M62.81 Muscle weakness (generalized); R20.9 Unspecified disturbances of skin sensation; M79.605 Pain in left leg; M54.16 Radiculopathy, lumbar region; M47.816 Spondylosis without myelopathy or radiculopathy, lumbar region; R29.898 Other symptoms and signs involving the musculoskeletal system; M43.26 Fusion of spine, lumbar region; M51.36 Other intervertebral disc degeneration, lumbar region; Z72.0 Tobacco use
CPT/HCPCS: 36415; 85025; 85651; 86140

== ENCOUNTER 2021-05-29 13:32 | Outpatient (CLI) | payer BC | END 2021-05-29 23:59 | disposition home or self-care (01) | LOC: RAD 13:32 | PROVIDERS: ATTEND Anesthesiology Pain Medicine | DX: M48.061 Spinal stenosis, lumbar region without neurogenic claudication (principal); M54.16 Radiculopathy, lumbar region; Z72.0 Tobacco use | CPT/HCPCS: 72148 ==

== ENCOUNTER 2022-02-14 08:35 | Emergency (ER) | payer BC, OTHER ==
[~2022-02-14] VITALS: Ht 170.2 cm; Wt 88.6 kg
[2022-02-14] MEDS: ketorolac trometh. 30mg/ml inj. IV ONE (09:48)
[2022-02-14 10:05] LABS: BASOPHILS # (AUTO) 0.1 X10'3 (0-0.2); BASOPHILS % (AUTO) 0.9 % (0-1); EOSINOPHILS # (AUTO) 0.2 X10'3 (0-0.9); EOSINOPHILS % (AUTO) 2.3 % (0-6); HEMATOCRIT 42.1 % (35.0-45.0); HEMOGLOBIN 14.4 g/dl (12.0-16.0); LYMPHOCYTES # (AUTO) 2.8 X10'3 (1.1-4.8); MEAN CORPUSCULAR HEMOGLOBIN 31.4 PG (27.0-31.0); MEAN CORPUSCULAR HGB CONC 34.3 g/dL (33.0-36.5); MEAN CORPUSCULAR VOLUME 91.7 FL (78-98); MEAN PLATELET VOLUME 7.7 FL (7.4-10.4); MONOCYTES # (AUTO) 0.5 X10'3 (0-0.9); MONOCYTES % (AUTO) 7.9 % (2-12); NEUTROPHILS # (AUTO) 3.3 X10'3 (1.8-7.7); NEUTROPHILS % (AUTO) 47.9 % (42-75); PLATELET COUNT 244 X10'3 (140-440); RED BLOOD COUNT 4.59 X10'6 (4.20-5.60); RED CELL DISTRIBUTION WIDTH 13.4 % (11.5-14.5); WHITE BLOOD COUNT 6.8 X10'3 (4.5-11.0)
[2022-02-14 10:24] LABS: ALANINE AMINOTRANSFERASE 84 U/L (12-78); ALBUMIN 3.9 G/DL (3.4-5.0); ALKALINE PHOSPHATASE 132 IU/L (46-116); ANION GAP 11 (8-16); ASPARTATE AMINO TRANSFERASE 24 U/L (10-37); BILIRUBIN,TOTAL 0.2 MG/DL (0.1-1.0); BLOOD UREA NITROGEN 10 MG/DL (7-18); BUN/CREATININE RATIO 10.4 (6.6-38.0); CALCIUM 8.8 MG/DL (8.5-10.1); CHLORIDE 102 MMOL/L (99-107); CREATININE 0.96 MG/DL (0.40-0.90); GLUCOSE 336 MG/DL (70-104); POTASSIUM 3.5 MMOL/L (3.5-5.1); SODIUM 139 MMOL/L (135-145); TOTAL CARBON DIOXIDE 26.2 MMOL/L (24-32); TOTAL PROTEIN 7.8 G/DL (6.4-8.2); eGFR 62 ML/MIN
[2022-02-14] MEDS: ondansetron/PF 4mg/2ml inj IV ONE (10:52)
[2022-02-14] MEDS: baclofen 10mg tablet PO STA (10:53)
[2022-02-14] MEDS: morphine 4 MG/ML inj SYRINge IV ONE ×2 (10:53→12:30)
[2022-02-14 11:24] VITALS: BP 168/109
[2022-02-14] MEDS ORDERED: PRED10TA PO (12:12)
[2022-02-14] MEDS ORDERED: HYDR-3973 PO (12:12)
[2022-02-14] MEDS ORDERED: IBUP-1986 PO (12:12)
== END 2022-02-14 12:40 | disposition home or self-care (01) ==
LOC: ER 08:35 → EEVIPCON 08:35 → ER 12:40
DX: M48.02 Spinal stenosis, cervical region (principal); G62.9 Polyneuropathy, unspecified; G43.909 Migraine, unspecified, not intractable, without status migrainosus; I10 Essential (primary) hypertension; J45.909 Unspecified asthma, uncomplicated; G89.29 Other chronic pain; F17.200 Nicotine dependence, unspecified, uncomplicated; Z87.01 Personal history of pneumonia (recurrent); Z87.442 Personal history of urinary calculi; Z87.440 Personal history of urinary (tract) infections; Z90.49 Acquired absence of other specified parts of digestive tract; Z90.710 Acquired absence of both cervix and uterus; Z98.890 Other specified postprocedural states; Z79.899 Other long term (current) drug therapy
CPT/HCPCS: 36415; 72125; 80053; 85025; 96374; 96375; 96376; 99284; J1885; J2270; J2405

== ENCOUNTER 2022-02-21 04:44 | Outpatient (CLI) | payer BC ==
[~2022-02-21 04:44] MED LIST changes: +HYDR-3973 PO; +IBUP-1986 PO; +PRED10TA PO
[2022-02-21 06:20] LABS: CLARITY,URINE CLEAR (Clear); COLOR,URINE YELLOW (Yellow); GLUCOSE, URINE 500 mg/dl (Neg); KETONES,URINE NEGATIVE (Neg); LEUKOCYTE ESTERASE ,URINE NEGATIVE (Neg); NITRITES, URINE NEGATIVE (Neg); OCCULT BLOOD,URINE NEGATIVE (Neg); PH,URINE 5.5 (4.8-8.0); PROTEIN,URINE TRACE mg/dl (Neg); UROBILINOGEN,URINE 0.2 E.U/dL (0.2-1.0)
[2022-02-21 06:25] LABS: UA COLLECTION TYPE CLN CATCH MIDSTREAM
[2022-02-21 06:28] LABS: MUCUS STRANDS MODERATE /LPF (Neg)
[2022-02-21 06:31] LABS: BACTERIA,URINE FEW /HPF (Neg); CAL OXALATE CRYSTALS FEW /HPF (NEGATIVE); FINE GRANULAR CAST 0-3 /LPF (NEGATIVE)
[2022-02-21 06:32] LABS: RBC,URINE NONE SEEN /HPF (0-2)
[2022-02-21 06:34] LABS: RENAL CELLS, URINE FEW /HPF
[2022-02-21 06:36] LABS: SQUAMOUS EPITHELIAL CELL,UR FEW /LPF (FEW)
[2022-02-21 06:38] LABS: BASOPHILS # (AUTO) 0.1 X10'3 (0-0.2); BASOPHILS % (AUTO) 0.5 % (0-1); EOSINOPHILS # (AUTO) 0.1 X10'3 (0-0.9); EOSINOPHILS % (AUTO) 0.6 % (0-6); HEMATOCRIT 41.9 % (35.0-45.0); HEMOGLOBIN 14.4 g/dl (12.0-16.0); LYMPHOCYTES # (AUTO) 2.1 X10'3 (1.1-4.8); LYMPHOCYTES % (AUTO) 17.3 % (21-51); MEAN CORPUSCULAR HEMOGLOBIN 31.5 PG (27.0-31.0); MEAN CORPUSCULAR HGB CONC 34.5 g/dL (33.0-36.5); MEAN CORPUSCULAR VOLUME 91.5 FL (78-98); MEAN PLATELET VOLUME 7.6 FL (7.4-10.4); MONOCYTES # (AUTO) 0.8 X10'3 (0-0.9); MONOCYTES % (AUTO) 6.2 % (2-12); NEUTROPHILS # (AUTO) 9.3 X10'3 (1.8-7.7); NEUTROPHILS % (AUTO) 75.4 % (42-75); PLATELET COUNT 270 X10'3 (140-440); RED BLOOD COUNT 4.58 X10'6 (4.20-5.60); RED CELL DISTRIBUTION WIDTH 13.2 % (11.5-14.5); WHITE BLOOD COUNT 12.3 X10'3 (4.5-11.0)
[2022-02-21 07:04] LABS: ALANINE AMINOTRANSFERASE 86 U/L (12-78); ALBUMIN 4.2 G/DL (3.4-5.0); ALBUMIN/GLOBULIN RATIO 1.1 (1.1-1.5); ALKALINE PHOSPHATASE 99 IU/L (46-116); ANION GAP 10 (8-16); ASPARTATE AMINO TRANSFERASE 28 U/L (10-37); BILIRUBIN,TOTAL 0.3 MG/DL (0.1-1.0); BLOOD UREA NITROGEN 15 MG/DL (7-18); BUN/CREATININE RATIO 18.3 (6.6-38.0); CALCIUM 8.8 MG/DL (8.5-10.1); CHLORIDE 104 MMOL/L (99-107); CHOL/HDL RATIO 5.1 (0.00-4.99); CHOLESTEROL 258 MG/DL (0-200); CREATININE 0.82 MG/DL (0.40-0.90); GLUCOSE 250 MG/DL (70-104); HDL CHOLESTEROL 51 MG/DL (35-60); LDL CHOLESTEROL 162 MG/DL (50-100); POTASSIUM 3.7 MMOL/L (3.5-5.1); SODIUM 142 MMOL/L (135-145); TOTAL CARBON DIOXIDE 27.6 MMOL/L (24-32); TOTAL PROTEIN 8.1 G/DL (6.4-8.2); TRIGLYCERIDES 214 MG/DL (20-135); eGFR 74 ML/MIN
== END 2022-02-21 23:59 | disposition home or self-care (01) ==
LOC: LAB 04:44
PROVIDERS: ATTEND Family Medicine
DX: Z00.01 Encounter for general adult medical examination with abnormal findings (principal)
CPT/HCPCS: 36415; 80053; 80061; 81001; 84439; 84443; 85025

== ENCOUNTER 2022-02-26 07:37 | Outpatient (CLI) | payer BC ==
[~2022-02-26 07:37] MED LIST changes: -HYDR-3973 PO
== END 2022-02-26 23:59 | disposition home or self-care (01) ==
LOC: RAD 07:37
PROVIDERS: ATTEND Family Medicine
DX: M50.11 Cervical disc disorder with radiculopathy, high cervical region (principal); M43.22 Fusion of spine, cervical region; M12.88 Other specific arthropathies, not elsewhere classified, other specified site
CPT/HCPCS: 72156; Q9967

== ENCOUNTER 2022-05-02 14:28 | Emergency (ER) | payer BC ==
[~2022-05-02] VITALS: Ht 170.2 cm; Wt 89.0 kg
[2022-05-02 14:37] VITALS: BP 172/79
[2022-05-02] MEDS ORDERED: orphenadrine citrate 60mg/2ml inj. IM ONE (17:25)
[2022-05-02] MEDS ORDERED: morphine 4 MG/ML inj SYRINge IM ONE (17:25)
[2022-05-02] MEDS ORDERED: ketorolac trometh. 30mg/ml inj. IM ONE (17:25)
[2022-05-02] MEDS ORDERED: HYDROcodone/acetaminophen 5mg/325mg tablet PO ONE (17:25)
[2022-05-02] MEDS ORDERED: ORPH100T2 PO (17:28)
[2022-05-02] MEDS ORDERED: HYDR-3965 PO (17:28)
== END 2022-05-02 18:05 | disposition home or self-care (01) ==
LOC: ER 14:29
DX: M54.2 Cervicalgia (principal); G43.909 Migraine, unspecified, not intractable, without status migrainosus; I10 Essential (primary) hypertension; J45.909 Unspecified asthma, uncomplicated; G89.29 Other chronic pain; F17.200 Nicotine dependence, unspecified, uncomplicated; M54.50 Low back pain, unspecified; Z90.49 Acquired absence of other specified parts of digestive tract; Z90.710 Acquired absence of both cervix and uterus
CPT/HCPCS: 96372; 99284; J1885; J2270; J2360

== ENCOUNTER 2023-05-15 10:22 | Outpatient (CLI) | payer BC ==
[~2023-05-15 10:22] MED LIST changes: +MONT-47 PO; -MONT10TA21 PO; +ORPH100T4 PO
[2023-05-15 11:12] LABS: BILIRUBIN,URINE NEGATIVE (Neg); CLARITY,URINE SLIGHTLY CLOUDY (Clear); COLOR,URINE YELLOW (Yellow); GLUCOSE, URINE NEGATIVE (Neg); KETONES,URINE NEGATIVE (Neg); LEUKOCYTE ESTERASE ,URINE NEGATIVE (Neg); NITRITES, URINE NEGATIVE (Neg); OCCULT BLOOD,URINE NEGATIVE (Neg); PH,URINE 6.5 (4.8-8.0); PROTEIN,URINE NEGATIVE (Neg); UROBILINOGEN,URINE 0.2 E.U/dL (0.2-1.0)
[2023-05-15 11:13] LABS: UA COLLECTION TYPE CLN CATCH MIDSTREAM
[2023-05-15 11:20] LABS: MUCUS STRANDS FEW /LPF (Neg)
[2023-05-15 11:21] LABS: AMORPHOUS URATES 4+
[2023-05-15 11:22] LABS: BACTERIA,URINE FEW /HPF (Neg); RBC,URINE 0-2 /HPF (0-2); SQUAMOUS EPITHELIAL CELL,UR FEW /LPF (FEW); TRANSITIONAL EPI CELLS,URINE FEW /HPF; WBC,URINE 0-4 /HPF (0-4)
[2023-05-15 11:25] LABS: BASOPHILS % (AUTO) 0.6 % (0-1); EOSINOPHILS # (AUTO) 0.2 X10'3 (0-0.9); EOSINOPHILS % (AUTO) 2.4 % (0-6); HEMATOCRIT 41.5 % (35.0-45.0); HEMOGLOBIN 13.8 g/dl (12.0-16.0); LYMPHOCYTES # (AUTO) 3.5 X10'3 (1.1-4.8); LYMPHOCYTES % (AUTO) 47.7 % (21-51); MEAN CORPUSCULAR HEMOGLOBIN 30.8 PG (27.0-31.0); MEAN CORPUSCULAR HGB CONC 33.3 g/dL (33.0-36.5); MEAN CORPUSCULAR VOLUME 92.7 FL (78-98); MEAN PLATELET VOLUME 7.4 FL (7.4-10.4); MONOCYTES # (AUTO) 0.6 X10'3 (0-0.9); MONOCYTES % (AUTO) 8.7 % (2-12); NEUTROPHILS % (AUTO) 40.6 % (42-75); PLATELET COUNT 347 X10'3 (140-440); RED BLOOD COUNT 4.47 X10'6 (4.20-5.60); RED CELL DISTRIBUTION WIDTH 13.4 % (11.5-14.5); WHITE BLOOD COUNT 7.4 X10'3 (4.5-11.0)
[2023-05-15 12:00] LABS: HEMOGLOBIN A1C 5.7 % (4.5-6.2)
[2023-05-15 12:05] LABS: ALANINE AMINOTRANSFERASE 56 U/L (12-78); ALBUMIN/GLOBULIN RATIO 1.1 (1.1-1.5); ALKALINE PHOSPHATASE 72 IU/L (46-116); ANION GAP 10 (8-16); ASPARTATE AMINO TRANSFERASE 23 U/L (10-37); BILIRUBIN,TOTAL 0.3 MG/DL (0.1-1.0); BLOOD UREA NITROGEN 9 MG/DL (7-18); BUN/CREATININE RATIO 11.8 (10.0-20.0); CALCIUM 9.8 MG/DL (8.5-10.1); CHLORIDE 101 MMOL/L (99-107); CHOL/HDL RATIO 4.3 (0.00-4.99); CHOLESTEROL 227 MG/DL (0-200); CREATININE 0.76 MG/DL (0.40-0.90); FREE T4 (FREE THYROXINE) 0.97 NG/DL (0.73-1.40); GLUCOSE 85 MG/DL (70-104); HDL CHOLESTEROL 53 MG/DL (35-60); LDL CHOLESTEROL 139 MG/DL (50-100); POTASSIUM 3.5 MMOL/L (3.5-5.1); SODIUM 139 MMOL/L (135-145); THYROID STIMULATING HORMONE 0.75 ulU/ml (0.34-4.50); TOTAL CARBON DIOXIDE 28.4 MMOL/L (24-32); TOTAL PROTEIN 7.7 G/DL (6.4-8.2); TRIGLYCERIDES 159 MG/DL (20-135); eGFR 80 ML/MIN
== END 2023-05-15 23:59 | disposition home or self-care (01) ==
LOC: LAB 10:22
PROVIDERS: ATTEND Family Medicine
DX: Z00.01 Encounter for general adult medical examination with abnormal findings (principal)
CPT/HCPCS: 36415; 80053; 80061; 81001; 82043; 82570; 83036; 84439; 84443; 85025

== ENCOUNTER 2023-11-07 11:11 | Outpatient (CLI) | payer BC | END 2023-11-07 23:59 | disposition home or self-care (01) | LOC: LAB SPEC 11:11 | PROVIDERS: ATTEND Family Medicine | DX: N39.0 Urinary tract infection, site not specified (principal) | CPT/HCPCS: 87077; 87088; 87186 ==

== ENCOUNTER 2024-07-28 13:36 | Outpatient (CLI) | payer BC | END 2024-07-28 23:59 | disposition home or self-care (01) | LOC: MRI 13:36 | PROVIDERS: ATTEND Physician Assistant | DX: M47.816 Spondylosis without myelopathy or radiculopathy, lumbar region (principal); M48.061 Spinal stenosis, lumbar region without neurogenic claudication; M43.27 Fusion of spine, lumbosacral region; M51.16 Intervertebral disc disorders with radiculopathy, lumbar region; M99.53 Intervertebral disc stenosis of neural canal of lumbar region | CPT/HCPCS: 72141; 72148 ==

== ENCOUNTER 2024-08-04 06:31 | Emergency (ER) | payer BC ==
[~2024-08-04] VITALS: Ht 170.2 cm; Wt 83.5 kg
[2024-08-04 06:36] VITALS: BP 179/86; PULSE 72; RESP 18; TEMP 97.9; O2SAT 97
[2024-08-04] MEDS ORDERED: PRED50TA PO (09:29)
[2024-08-04] MEDS ORDERED: GABA300C PO (09:29)
[2024-08-04] MEDS: dexamethasone sod phosphate 10mg/ml inj IM STA (09:33)
== END 2024-08-04 10:30 | disposition home or self-care (01) ==
LOC: ER 06:32
DX: M54.17 Radiculopathy, lumbosacral region (principal); I10 Essential (primary) hypertension; G43.909 Migraine, unspecified, not intractable, without status migrainosus; J45.909 Unspecified asthma, uncomplicated; F17.210 Nicotine dependence, cigarettes, uncomplicated; Z87.440 Personal history of urinary (tract) infections; Z90.710 Acquired absence of both cervix and uterus; Z90.49 Acquired absence of other specified parts of digestive tract; Z98.890 Other specified postprocedural states
CPT/HCPCS: 96372; 99283; J1100

== ENCOUNTER 2024-10-20 05:52 | Inpatient (IN) | payer BC ==
--- NOTE | 2024-10-01 14:23 | ELECTROCARDIOGRAPH REPORT ---
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 ALFRED Vasquez Measurements Intervals [place] Rate: 76 P: 66 WV: 137 QRS: 76 QRSD: 89 T: 71 QT: 385 QTc: 433 Interpretive Statements Sinus rhythm Ventricular premature complex Electronically Signed On 10-01-2024 17:12:[address] ALFRED Vasquez Please click the below link to view image of tracing.
[2024-10-01 14:34] LABS: BASOPHILS # (AUTO) 0.1 X10'3 (0-0.2); BASOPHILS % (AUTO) 0.9 % (0-1); EOSINOPHILS # (AUTO) 0.2 X10'3 (0-0.9); HEMATOCRIT 43.8 % (35.0-45.0); HEMOGLOBIN 14.4 g/dl (12.0-16.0); LYMPHOCYTES # (AUTO) 3.1 X10'3 (1.1-4.8); LYMPHOCYTES % (AUTO) 39.4 % (21-51); MEAN CORPUSCULAR HEMOGLOBIN 31.2 PG (27.0-31.0); MEAN CORPUSCULAR HGB CONC 32.9 g/dL (33.0-36.5); MEAN PLATELET VOLUME 7.9 FL (7.4-10.4); MONOCYTES # (AUTO) 0.8 X10'3 (0-0.9); MONOCYTES % (AUTO) 9.8 % (2-12); NEUTROPHILS # (AUTO) 3.8 X10'3 (1.8-7.7); NEUTROPHILS % (AUTO) 47.9 % (42-75); PLATELET COUNT 345 X10'3 (140-440); RED BLOOD COUNT 4.61 X10'6 (4.20-5.60); WHITE BLOOD COUNT 7.8 X10'3 (4.5-11.0)
[2024-10-01 14:52] LABS: ALANINE AMINOTRANSFERASE 20 U/L (12-78); ALBUMIN 4.1 G/DL (3.4-5.0); ALKALINE PHOSPHATASE 76 IU/L (46-116); ANION GAP 8 (8-16); ASPARTATE AMINO TRANSFERASE 12 U/L (10-37); BILIRUBIN,TOTAL 0.3 MG/DL (0.1-1.0); CHLORIDE 107 MMOL/L (99-107); POTASSIUM 3.3 MMOL/L (3.5-5.1); SODIUM 141 MMOL/L (135-145); TOTAL CARBON DIOXIDE 25.7 MMOL/L (24-32)
[2024-10-01 14:56] LABS: ALBUMIN/GLOBULIN RATIO 1.2 (1.1-1.5); BLOOD UREA NITROGEN 8 MG/DL (7-18); BUN/CREATININE RATIO 12.5 (10.0-20.0); CALCIUM 9.2 MG/DL (8.5-10.1); CREATININE 0.64 MG/DL (0.40-0.90); GLUCOSE 86 MG/DL (70-104); TOTAL PROTEIN 7.4 G/DL (6.4-8.2); eGFR > 90 ML/MIN
[2024-10-09] MEDS: ceFAZolin 2gm in dextrose, iso 50 ML IV ONE (05:30)
[2024-10-09] MEDS: albuterol 2.5 MG/3 ML nebule NEB ONE (05:30)
[2024-10-20] VITALS (29 sets, daily range): BP systolic 100–169; BP diastolic 50–97; PULSE 61–110; RESP 11–18; TEMP 97.6–98.9; O2SAT 94–100
[~2024-10-20] VITALS: Ht 170.2 cm; Wt 63.5 kg
[2024-10-20] MEDS: famotidine 20mg tablet PO ONE ×2 (05:30→06:32)
[2024-10-20] MEDS: ceFAZolin 2gm in dextrose, iso 50 ML IV ONE (05:30)
[2024-10-20] MEDS: albuterol 2.5 MG/3 ML nebule NEB ONE (05:30)
[~2024-10-20 05:52] MED LIST changes: -ALBU8.5H17 PO; +AMPH20TA3 PO; -ATOR20TA66 PO; -CARV6.252 PO; -CLON0.1T PO; -CLON2TAB12 PO; -DEXA6TAB6 PO; -DOCU100C40 PO; -IBUP-1986 PO; -INHA1INH2; -MELO-100 PO; -ONDA4TAB6 PO; -ORPH100T4 PO; -PRED10TA PO; +SEMA2PEN SUBCUT; +TRAM50TA2 PO; -ZOLP10TA PO; +ringers solution, lacted 1,000 ML IV SCH
[2024-10-20] MEDS: ringers solution, lacted 1,000 ML IV SCH ×2 (06:33→21:22)
[2024-10-20] MEDS ORDERED: LIDOcaine 1% 30ml preserv. free vial ONE (06:40)
[2024-10-20] MEDS ORDERED: BUPIVAcaine 2.5mg/ml inj 50ml vial (contains preservative) ONE ×2 (06:41→08:28)
[2024-10-20] MEDS ORDERED: gelatin sponge, absorbable (Gelfoam 100) sponge TP ONE (06:41)
[2024-10-20] MEDS ORDERED: methylPREDNISolone acetate 80mg/ml inj**IM only ONE (06:41)
[2024-10-20] MEDS ORDERED: Thrombin (Bovine) 5,000 unit vial TP ONE (06:41)
--- NOTE | 2024-10-20 06:50 | HISTORY AND PHYSICAL ---
History & Physical - Short Providers to CC ~ History of Present Illness Chief Complain & History Lumbar fusion at L4-5 through S1 in 2004 [address] Doctor Collins.- Additional surgery in 2017 or 2018 by Doctor Crawford, intended for fusion but only scar tissue removal was performed.- Numbness and tingling in the left leg, sharp pains in the groin, thigh, and back of the leg, primarily on the left side, worsening over the last year.- Chronic lower back pain, aching across the lower back, extending to the buttock and groin.- Numbness and tingling in the left foot, particularly the big toe, leading to falls.- Pain exacerbated by sitting for long periods, especially over the last four months.- Previous physical therapy after 2005 surgery, not recently.- Undergoing pain management with epidural injections and radiofrequency ablation for two to three years, with diminishing effectiveness.- Recent MRI performed before referral to the current provider, showing far lateral disc herniation at L3-4 level on the left, causing significant overstretching of the exiting nerve root. Allergies: Coded Allergies: No Known Allergies (Unverified , 08/04/24) Home Medications Home Medications Active Reported Adderall 20 mg Tablet (Dextroamphetamine/Amphetamine) 20 Mg Tablet 1 Tab PO DAILY Ozempic (Semaglutide) 2 Mg/0.75 Ml (8 Mg/3 Ml) Pen.injctr 2 Mg SUBCUT Q2W Tramadol HCl 50 Mg Tablet 1 Tab PO Q12H PRN PRN Motrin* (Ibuprofen) 400 Mg Tablet 800 Mg PO Q8H PRN Soma (Carisoprodol) 350 Mg Tablet 1 Tab PO DAILY PRN Singulair (Montelukast Sodium) 10 Mg Tablet 1 Tab PO DAILY Lisinopril 10 Mg Tablet 10 Mg PO DAILY Past Medical History Past Medical History Chronic back pain- Left leg pain with numbness and tingling- Neck painPSH Lumbar fusion at L4-5 through S1 in 2004- Scar tissue removal in 2017 Past Surgical History Past Surgical History Lumbar fusion at L4-5 through S1 in 2004- Scar tissue removal in 2017 Family History Patient History: FH: breast cancer maternal grandmother FH: lung cancer paternal grandfather Exam Vitals: Height 67 in Weight 137 lb BMI 21.46 BP 173/101 mmHg HR 88 bpm RR 12 bpm O2 Sat 96 % Cardiac: RRR Pulmonary: CTA Abdomen: Soft, Bs normal. No masses Neurologic: Patient awake alert Oriented in person, place and time spheres Minimental exam: attention, affect, memory, intelligence, language are normal. Cranial nerve examination: I:Olfaction normal. II: vision is adequate. Visual garcia by confrontation are conserved. III, IV and : Pupils equally round and react to light symmetrically. Extraocular muscles are intact. V: Facial sensation is symmetric. VII: No facial droop. VIII:Hearing intact to conversation and symmetric. IX anX: Palate upgoing not deviated. XI: SCM and Trapezius strength is symmetrical. XII:Tongue midline. Strength in upper extremities is 5/5 proximal and distal Strength in lower extremities is 5/5 proximal and distal. Osteotendinous reflexes are ++/+++++ symmetrical in biceps, triceps, supinator,Decreased left patelar reflexStrength in quadriceps on right is decreased 4/5Decreased sensation L3-4 distribution on the left. No Babinsky or Corona reflexes Coordination: finger to nose apporopiate. No Adiadochokinesia. Gait is normal. Diagnostic Data Diagnostic Data: Far lateral disc herniation at the L3-4 level on the left, causing significant overstretching of the exiting nerve root, consistent with radiated pain and weak ness in the L4-L3-4 distribution on the left side. Counseling Services Smoking & Tobacco Cessation: N/A Advance Care Planning Advanced Care plannin - 30 Minutes Problem\Assessment\Plan Additional Plan Chronic left leg pain and numbness, likely due to lumbar spine issues.- Ine ffectiveness of current pain management strategies, including epidural injections and radiofrequency ablation, in providing long-term relief.- Possible progression of lumbar spine pathology, given the worsening symptoms over the past year.- Far lateral disc herniation at the L3-4 level on the left, causing significant overstretching of the exiting nerve root, consistent with radiated pain and weakness in the L4-L3-4 distribution on the left side. Proceed with a far lateral discectomy at the L3-4 level on the left side to alleviate the compression on the nerve root. Given the presence of previous fusion below the levels of the current herniated disc, its is extremely likely that she will develop further collapse of the disc space and further symptoms to develop given foraminal stenosis. In order to prevent this problem, a fusion to provide good indirect decompression to the exiting nerve root is necessary. An L3-L4 lateral discectomy and fusion with cage will be performed. An stand alone devide will be use with laterally placed screws L3-L4 but if not possible given the presence of previous hardware, an additional posterior backing with pedicle screws and rods placement will be performed. Benefits, risks, and alternatives for this procedure was discussed with the patient and she wants to proceed with this surgery and signed informed consent DAVID CHAUHAN MD Oct 20, 2024 06:50
[2024-10-20] MEDS ORDERED: sevoflurane 250ml liquid IH ONE (07:50)
[2024-10-20] MEDS ORDERED: REMIFENTANIL (Ultiva) 1 MG VIAL IV ONE (07:59)
[2024-10-20] MEDS ORDERED: fentaNYL/PF 50MCG/1 ML 2ML syringe ONE (08:00)
[2024-10-20] MEDS ORDERED: midazolam 1 mg/ML 2ml injection ONE (08:01)
[2024-10-20] MEDS ORDERED: propofol inj 20 ML IV ONE ×2 (08:05)
[2024-10-20] MEDS ORDERED: rocuronium 10mg/ml inj IV ONE (08:05)
[2024-10-20] MEDS ORDERED: LIDOcaine 2% (20mg/ml) 5ml vial ONE (08:22)
[2024-10-20] MEDS ORDERED: dexamethasone sod phosphate 4mg/ml inj. ONE (08:22)
[2024-10-20] MEDS: LIDOcaine 1% 30ml preserv. free vial IJ ONE ×2 (10:28→10:29)
[2024-10-20] MEDS ORDERED: ringers solution, lacted 1,000 ML IV SCH (11:00)
[2024-10-20] MEDS ORDERED: labetalol 20mg/4ml (5mg/ml) syringe IV PRN (11:00)
[2024-10-20] MEDS ORDERED: enalaprilat 1.25mg/ml 2ml vial IV PRN (11:00)
[2024-10-20] MEDS ORDERED: meperidine/PF 25mg/ml syringe IV PRN ×3 (11:00)
[2024-10-20] MEDS ORDERED: ondansetron/PF 4mg/2ml inj IV PRN ×2 (11:00→12:40)
[2024-10-20] MEDS ORDERED: proCHLORperazine 10 MG/2 ml inj IV PRN (11:00)
[2024-10-20] MEDS ORDERED: morphine 2 MG/ML inj. syringe IV PRN (11:00)
[2024-10-20] MEDS ORDERED: morphine 4 MG/ML inj SYRINge ONE (12:02)
[2024-10-20] MEDS ORDERED: acetaminophen 1,000mg/100ml IV 100 ML IV ONE (12:09)
[2024-10-20] MEDS: morphine 4 MG/ML inj SYRINge IV PRN (12:26)
[2024-10-20] MEDS ORDERED: meperidine/PF 100mg/ml syringe IV PRN ×2 (12:34)
[2024-10-20] MEDS: meperidine/PF 100mg/ml syringe IV PRN (12:37)
[2024-10-20] MEDS ORDERED: hydrALAZINE 20mg/ml inj. IV PRN (12:40)
[2024-10-20] MEDS ORDERED: HYDROcodone/acetaminophen 10/325mg tab PO PRN (12:40)
[2024-10-20] MEDS: docusate sod 100mg capsule PO SCH ×2 (12:40→22:23)
[2024-10-20] MEDS ORDERED: glucagon, human recombinant 1mg kit SUBCUT PRN (13:00)
[2024-10-20] MEDS ORDERED: CARISOPRODOL 350 MG PO PRN (13:00)
[2024-10-20] MEDS ORDERED: dextrose 50%-water 50ml dispensing syringe IV PRN ×2 (13:00)
[2024-10-20] MEDS ORDERED: DEXTROSE 15 GM of carb/4 tabs (each vial/BOTTLE has 4 tablets) PO PRN ×2 (13:00)
[2024-10-20] MEDS ORDERED: ibuprofen tablet 400 MG TABLET PO PRN (13:00)
[2024-10-20] MEDS ORDERED: traMADol 50MG tablet PO PRN (13:00)
[2024-10-20] MEDS: HYDROmorphone inj. 0.5 MG/0.5 ML DISP.SYRIN IV PRN (14:14)
[2024-10-20] MEDS: HYDROcodone/acetaminophen 10/325mg tab PO PRN (15:31)
[2024-10-20] MEDS ORDERED: naloxone 0.4 mg/ml inj IV PRN (17:20)
[2024-10-20] MEDS: HYDROmorph/NS 0.2 mg/ml PCA 100 ML IV SCH (18:46)
[2024-10-20] MEDS: normal saline 1000ml 1,000 ML IV SCH (18:46)
[2024-10-20] MEDS: Semaglutide (Ozempic) 2 MG SQ SCH (19:00)
[2024-10-20] MEDS ORDERED: HYDROmorph/NS 0.2 mg/ml PCA 100 ML IV SCH (19:00)
[2024-10-20] MEDS: INSULIN LISPRO 100 UNIT/ML INSULN.PEN MULTI-DOSE SQ SCH (19:15)
[2024-10-20] MEDS ORDERED: albuterol 2.5 MG/3 ML nebule NEB PRN (22:35)
[2024-10-20] MEDS: albuterol 2.5 MG/3 ML nebule NEB PRN (23:05)
[2024-10-20] MEDS: cyclobenzaprine 10mg tablet PO SCH (23:54)
[2024-10-21] MEDS: ceFOXitin 1 GM/D5W 50mL IVPB 50 ML IV SCH (00:01)
[2024-10-21 02:00] VITALS: BP 103/49; PULSE 63; RESP 14; TEMP 97.8; O2SAT 95
[2024-10-21] MEDS ORDERED: ibuprofen 200mg tablet PO PRN (03:49)
[2024-10-21] MEDS: ibuprofen tablet 400 MG TABLET PO PRN (04:20)
[2024-10-21 06:00] VITALS: BP 132/69; PULSE 70; RESP 14; TEMP 96.9; O2SAT 99
--- NOTE | 2024-10-21 08:10 | DISCHARGE SUMMARY ---
Discharge Summary Providers to CC ~ Discharge Summary Admission Diagnosis: Lumbar fusion Hospital Course DATE OF ADMISSION: 10/20/22 DATE OF DISCHARGE:10/21/24 Discharge Diagnosis\Comment: status post lumbar fusion Operations\Procedures: L3-L4 lateral discectomy and fusion with cage Consultants: None Complications: None Condition on DC: Stable New Medications: Cyclobenzaprine* (Cyclobenzaprine*) 10 Mg Tablet 1 TAB PO Q8H for muscle spasms for 10 Days, #30 TAB 0 Refills Hydrocodone Bit/Acetaminophen 5/325 MG ([place] 5/325 MG) 5 Mg/325 Mg Tablet 1-2 TAB PO Q4HPRN PRN for pain for 5 Days, #30 TAB Discharge Summary: Patient underwent Lumbar fusion Doing well. Pain under control Ambulating in floor Canseco was discontinue patient ready for discharge home on self care *Problems/Diagnosis: (1) Degenerative lumbar disc Status: Acute (2) Low back pain Status: Acute (3) History of degenerative disc disease Total Time Spent on D/C: Up to 30 Minutes DAVID CHAUHAN MD Oct 21, 2024 08:10
[2024-10-21] MEDS ORDERED: HYDR-3965 PO (08:11)
[2024-10-21] MEDS ORDERED: CYCL-394 PO (08:11)
[2024-10-21] MEDS: montelukast 10mg tablet PO SCH (08:14)
[2024-10-21] MEDS: lisinopril 10 MG tablet PO SCH (08:15)
[2024-10-21] MEDS ORDERED: cyclobenzaprine 10mg tablet PO SCH (08:17)
[2024-10-21] MEDS: PCA WASTE DOCUMENTATION 1 MG ML MC PRN (08:40)
[2024-10-21] MEDS: cyclobenzaprine 10mg tablet PO SCH (09:23)
[2024-10-21] MEDS: dextroamphetamine/amphetamine 5mg tablet PO SCH (09:24)
[2024-10-21 10:00] VITALS: BP 161/53; PULSE 63; RESP 17; TEMP 97.9; O2SAT 98
[2024-10-21 10:55] VITALS: PULSE 56; RESP 16; O2SAT 95
[2024-10-21 11:01] VITALS: PULSE 58; RESP 16
[2024-10-21 11:10] VITALS: RESP 16
--- NOTE | 2024-11-03 23:13 | OPERATIVE REPORT ---
Operative Report Providers to CC CC: BRIAN CHAUHAN MD ~ Date of Procedure: Oct 20, 2024 Pre-Operative Diagnosis: Lumbar foraminal stenosis Post-Operative Diagnosis SAME as PRE-Op Procedure Performed L3-L4 left lateral discectomy and interbody fusion with cage, plate and screws Surgeon: Brian Loredo MD Sap Basis Consultant None Anesthesiologist: Avtar Rodney Type of Anesthesia: General Findings: As per post op diagnosis Complications None Prosthetics\Implants used: Lateral Alphatech cage and grafting material Lateral Plate and screws Estimated Blood Loss: 40 cc Specimen Removed: none Description of Procedure: This was a posterior transpsoas lumbar interbody fusion L3-L4. The patient was brought to the operating room and placed under general anesthesia. Endotracheal intubation was performed without complications. Electrodes were placed in 4 extremities and head for electrophysiological intraoperative monitoring.The patient was positioned in the prone decubitus position on a radiolucent table with special Alfatech frame with padding to allow changing coronal curvature of the spine. The post was placed on the iliac bone attached to the localization tool of the eMinor system. A 4-5 cm incision was made over the lateral aspect of the abdomen, directly over the target disc space. The subcutaneous tissue and muscular layers were dissected to expose the lateral aspect of the vertebral bodies. The retroperitoneal space was carefully entered, and the psoas muscle was split to access the lateral disc space.Once adequate exposure was obtained, the disc space was identified and confirmed using cross table X rays with C arm. A series of sequential dilators were inserted, and electrophysiological stimulation was performed win four quadrant stimulation to confirm no nerves ca ught close to the dilators. A retractor was eventually placed attached to the self retaining arm and discectomy was performed. The disc material was removed, and the endplates were prepared with curettes and rasps to remove any remaining cartilage and expose bleeding bone to facilitate fusion. The introduction of the different tools were monitored with intraoperative fluoroscopy. A properly sized interbody cage filled with autograft and allograft material was then inserted into the prepared disc space. The position of the cage was confirmed via fluoroscopy, ensuring optimal placement within the disc space. Using Awl tool perforation were placed trough a special plate attached over the cage to span to the vertebral bodies at the level above and below the disc space operated. 45 mm length, [address] laterally to lock the position of the cage. Hemostasis was achieved, and the surgical site was irrigated with normal saline. The psoas muscle and retroperitoneal space were closed in layers. The skin was closed using [sutures/pastora] and a sterile dressing was applied. A drain was not placed.??Intraoperative fluoroscopy confirmed the proper placement of the interbody cage and presybeterian of disc height. No complications were noted during the procedure. The patient was extubated and transferred to the recovery room in stable condition. Counts repoted as correct: Yes BRIAN CHAUHAN MD November 03, 2024 23:13
== END 2024-10-21 12:23 | disposition home or self-care (01) | DRG 451 ==
LOC: PAS 05:52 → PAS IN 12:53 → ORTHO 4S 14:52
PROVIDERS: ADMIT Neurological Surgery; ATTEND Neurological Surgery
PROC: 4A11X4G Monitoring of Peripheral Nervous Electrical Activity, Intraoperative, External Approach (ICD-10-PCS; 2024-10-20)
PROC: 0SG00AJ Fusion of Lumbar Vertebral Joint with Interbody Fusion Device, Posterior Approach, Anterior Column, Open Approach (ICD-10-PCS; principal; 2024-10-20 07:50)
DX: M48.061 Spinal stenosis, lumbar region without neurogenic claudication (principal); M51.26 Other intervertebral disc displacement, lumbar region; Z80.3 Family history of malignant neoplasm of breast; Z79.899 Other long term (current) drug therapy
CPT/HCPCS: Z7506; Z7508; 36415; 72100; 76000; 80053; 82948; 85025; 86885; 86900; 86901; 93005; 94640; 94760; 97110; 97161; 97530; A4215; A4355; A4615; A4618; A5200; A6213; A6402; A6449; A7000; C1713; C1758; C1769; C9250; G0378; J0131; J0690; J0694; J1010; J1100; J1171; J1815; J2003; J2175; J2250; J2270; J2405; J2704; J3010; J3490; J7030; J7050; J7120

== ENCOUNTER 2024-11-26 09:08 | Outpatient (CLI) | payer BC ==
[~2024-11-26 09:08] MED LIST changes: -ringers solution, lacted 1,000 ML IV SCH
--- NOTE | 2024-11-26 10:08 | RADIOLOGY REPORT ---
EXAM: DI LUMBAR SPINE LIMITED HISTORY: POST STATUS LUMBAR FUSION COMPARISON: Lumbar spine MRI dated 07/28/2024; lumbar spine fluoroscopic spot views dated 10/20/2024. TECHNIQUE: AP and lateral views of the lumbar spine and spot lateral of the lumbosacral junction were performed. FINDINGS: No fracture or listhesis of the lumbar spine. Probable lumbosacral transitional vertebrae. There is d egenerative disc disease, greatest at L2-L3 There are postoperative changes posterior spinal fusion w ith pedicle screws and rods L4-S1, left lateral plate and screw fusion L3-L4. No evidence of hardware failure or complication. There are surgical clips in the right upper quadrant, consistent with prior cholecystectomy. IMPRESSION: 1. Postoperative changes of the lumbar spine as detailed above. 2. No fracture of the lumbar spine. 3. Degenerative disc disease, greatest at L2-L3.
== END 2024-11-26 23:59 | disposition home or self-care (01) ==
LOC: RAD 09:08
PROVIDERS: ATTEND Neurological Surgery
DX: M51.369 Other intervertebral disc degeneration, lumbar region without mention of lumbar back pain or lower extremity pain (principal); M47.816 Spondylosis without myelopathy or radiculopathy, lumbar region
CPT/HCPCS: 72100

== ENCOUNTER 2025-01-22 09:36 | Emergency (ER) | payer OTHER ==
[~2025-01-22] VITALS: Ht 170.2 cm; Wt 61.4 kg
[2025-01-22 09:45] VITALS: BP 169/107; PULSE 87; RESP 18; TEMP 98; O2SAT 98
--- NOTE | 2025-01-22 09:50 | Physician Documentation ---
History of Present Illness General Stated Complaint: SEE CHIEF Time Seen by MD: 09:42 Primary Medical Doctor: BARRINGTON Source: patient Mode of Arrival: POV Exam Limitations: no limitations History of Present Illness Initial Comments 54-year-old female who is here for evaluation due to some behavioral concerns. Some of her coworkers at work reported that she had abnormal behavior and she has voluntary checked in to ER and has agreed to getting her alcohol level checked a and drug screen. She states that she takes tramadol, adderall and soma. She reports she only took adderall today. Denies EtOH use. Patient reports she feels "fine" and has no concerns. Medication Reconciliation Allergies: Coded Allergies: No Known Allergies (Unverified , 08/04/24) Scheduled Dextroamphetamine/Amphetamine (Adderall 20 mg Tablet), 1 TAB PO DAILY, (Reported) Lisinopril (Lisinopril), 10 MG PO DAILY, (Reported) Montelukast Sodium (Singulair), 1 TAB PO DAILY, (Reported) Semaglutide (Ozempic), 2 MG SUBCUT Q2W, (Reported) Scheduled PRN Carisoprodol (Soma), 1 TAB PO DAILY PRN for muscle spasms, (Reported) Ibuprofen* (Motrin*), 800 MG PO Q8H PRN for pain, (Reported) Tramadol HCl (Tramadol HCl), 1 TAB PO Q12H PRN PRN for pain, (Reported) Past Medical History Past Medical History: Migraine, Hypertension, Asthma, Pneumonia, Kidney Stones, UTI, Chronic Pain, Chronic Back Pain Past Surgical History: cholecystectomy, hysterectomy, orthopedic surgeries, other Smoking: Cigarettes Alcohol Use: Rarely Drug Use: none Lives with: Family Lives In: Home Occupation: employed Review of Systems All Other Systems at this time: Reviewed and Negative Physical Exam Physical Exam Physical Exam General Appearance: Alert, WD/WN. NAD. Good eye contact. HEENT: NCAT, PERRL, EOMI. Neck: Supple, trachea midline. Lungs: Breathing unlabored Extremities: Normal inspection. No edema. Skin: Warm/dry, normal color Neurological: Alert and oriented x4, normal gait. Psychiatric: Affect congruent with mood. Lip smacking. Speech clear and articulate. Nonpressured. Progress Results/Orders Results/Orders Completed Orders - THI LOPEZ (01/22/25 09:46) Drug Screen, Urine (01/22/25 09:46) Vital Signs 01/22/25 09:45 Temp 98.0 Pulse 87 Resp 18 B/P (MAP) 169/107 Pulse Ox 98 O2 Flow Rate 0 Laboratory Tests Test 01/22/25 10:03 01/22/25 10:04 Urine Opiates Screen Negative Urine Methadone Screen Negative Urine Fentanyl Screen Negative Urine Barbiturates Screen Negative Urine Phencyclidine Screen Negative Urine Amphetamines Screen Positive H Urine Benzodiazepines Screen Negative Urine Cocaine Screen Negative Urine Cannabinoids Screen Positive H Drug Screen Comment Ethyl Alcohol Level < 10 Medical Decision Making Differential Diagnosis HERE FOR SCREENING EXAM Departure Time of Disposition: 10:44 Disposition: 01 HOME / SELF CARE / HOMELESS Impression: Primary Impression: Encounter for blood-alcohol and blood-drug test Condition: Stable Discharge Instructions: General Discharge Instructions Additional Instructions: MEDICAL SCREENING EXAM HAS BEEN COMPLETE Referrals: NO PRIMARY CARE PROVIDER (PCP) Education Educated: Patient Educated regarding: diagnosis, treatment, need for follow up Signature Scribe Signature: X Attestation: THI CARO Jan 22, 2025 09:50
[2025-01-22 10:31] LABS: URINE AMPHETAMINE SCREEN POSITIVE (Neg); URINE BARBITUATE SCREEN NEGATIVE (Neg); URINE BENZODIAZEPINES SCREEN NEGATIVE (Neg); URINE CANNABINOID SCREEN POSITIVE (Neg); URINE COCAINE SCREEN NEGATIVE (Neg); URINE METHADONE SCREEN NEGATIVE (Neg); URINE OPIATE SCREEN NEGATIVE (Neg); URINE PHENCYCLIDINE SCREEN NEGATIVE (Neg)
== END 2025-01-22 11:20 | disposition home or self-care (01) ==
LOC: ER 09:36 → EEVIPCON 09:36 → ER 11:20
DX: Z13.89 Encounter for screening for other disorder (principal); I10 Essential (primary) hypertension; J45.909 Unspecified asthma, uncomplicated; G43.909 Migraine, unspecified, not intractable, without status migrainosus; F17.210 Nicotine dependence, cigarettes, uncomplicated; Z90.710 Acquired absence of both cervix and uterus; Z90.49 Acquired absence of other specified parts of digestive tract; Z79.899 Other long term (current) drug therapy; Z87.442 Personal history of urinary calculi
CPT/HCPCS: 36415; 80305; 80320; 99283

== ENCOUNTER 2025-04-06 08:36 | Outpatient (CLI) | payer BC ==
--- NOTE | 2025-04-06 09:48 | RADIOLOGY REPORT ---
right HIP RADIOGRAPH. CLINICAL INDICATION: RIGHT HIP PAIN TECHNIQUE: 4 views of the right hip were obtained. FINDINGS: There is no evidence of fracture, subluxation or dislocation.The alignment is within normal limits.The bony mineralization is normal.No radiopaque foreign body is identified. Moderate right hip osteoarthritis. IMPRESSION: 1. No evidence of acute bony injury.
== END 2025-04-06 23:59 | disposition home or self-care (01) ==
LOC: RAD 08:36
PROVIDERS: ATTEND Nurse Practitioner
DX: M25.551 Pain in right hip (principal)
CPT/HCPCS: 73502

== ENCOUNTER 2025-05-04 10:07 | Outpatient (CLI) | payer BC ==
--- NOTE | 2025-05-04 19:21 | RADIOLOGY REPORT ---
EXAM: MR MRI LOWER EXTREMITY RIGHT, MR MRI PELVIS INDICATION: PAIN IN RIGHT HIP TECHNIQUE: Multiplanar and multisequence MR imaging of the right hip was performed in the absence of gadolinium contrast material. MRI of the pelvis without contrast was also performed. COMPARISON: MR MRI LUMBAR SPINE on DOS: 07/28/24 FINDINGS: [BONE]: Sacroiliac joints and pubic symphysis intervals are normal. Bone marrow signal is normal. No acute fracture, osseous contusion, avascular necrosis, or aggressive osseous lesion. Susceptibility artifact of the lumbar spine. Visualization of subchondral edema/ cystic change of the bilateral acetabular rims. [MUSCLES]: Normal in bulk and morphology. [JOINT SPACE]: Trace right hip joint fluid. Areas of oval-shaped T1 hyperintensity along the anterior aspect of the right hip which may represent intra-articular bodies measuring up to 8 mm. [ALIGNMENT]: Hip alignment is normal. The femoral head neck contour is normal. The acetabular depth is normal. [BURSAE]: No trochanteric or iliopsoas bursal collection. [LABRUM/CARTILAGE]: Thickening with intermediate to high signal intensity and likely full-thickness tearing of the anterior to anterior superior and superior labrum. Opposing diffuse cartilage thinning of the hips. Small amount of subchondral cystic change of the superior acetabulum. Marginal acetabular spurring. [LIGAMENTS]: Intact ligamentum teres, acetabular transverse ligament, and joint capsular ligaments. [TENDONS:] Intact rectus femoris, hamstring, and gluteal tendons. [OTHER]: None IMPRESSION: 1. No MR evidence of an acute fracture or muscle strain. 2. Trace right hip joint fluid with suspected intra-articular bodies. 3. Thickening with intermediate to high signal intensity and likely full- thickness tearing of the anterior to anterior superior and superior labrum. 4. Opposing diffuse cartilage thinning of the hips. 5. Small amount of subchondral cystic change of the superior acetabulum. 6. Marginal acetabular spurring of bilateral hips compatible with degenerative change.
== END 2025-05-04 23:59 | disposition home or self-care (01) ==
LOC: MRI02 10:07
PROVIDERS: ATTEND Nurse Practitioner
DX: M25.851 Other specified joint disorders, right hip (principal); M25.551 Pain in right hip; M76.892 Other specified enthesopathies of left lower limb, excluding foot; M76.891 Other specified enthesopathies of right lower limb, excluding foot
CPT/HCPCS: 72195; 73721